=== PATIENT | male | born 1960 | race Caucasian/White ===

== ENCOUNTER → 2021-08-30 02:12 | Outpatient (CLI) | payer BC, SELFPAY ==
[2021-08-30 20:41] LABS: SARS-CoV-2 RNA PCR Positive
== END ==
PROVIDERS: PCP Internal Medicine; Visit Provider Internal Medicine
DX: U07.1 COVID-19 (principal); R05.9 Cough, unspecified
CPT/HCPCS: C9803; U0003; U0005

== ENCOUNTER 2021-10-24 09:46 | Outpatient (CLI) | payer BC, SELFPAY ==
--- NOTE | ~2021-10-24 | CT_ITS ---
EXAMINATION: CT abdomen pelvis w con EXAM DATE: 10/24/2021 10:30 INDICATION: K57.92 - Diverticulitis of intestine, part unspecified, w... TECHNIQUE: Spiral CT of the abdomen and pelvis was performed following intravenous injection of 100 m L Omnipaque 350. Axial, coronal and sagittal images of the abdomen and pelvis were reviewed. The do se-length product (DLP) for this examination was 1347.68 mGy-cm. The exposure was tailored according to patient size (auto mA exposure control), and iterative reconstruction (ASIR) was used as addition al dose reduction technique. There is no prior study for comparison. FINDINGS: The liver, spleen, adrenal glands and pancreas are unremarkable. Gallbladder is unremarkab le. No biliary obstruction. Portal and splenic veins are patent. Kidneys enhance symmetrically. T here is no hydronephrosis. Bilateral renal peripelvic cysts. The prostate is unremarkable. The blad giulia is unremarkable. There is no retroperitoneal or pelvic lymphadenopathy. There is mild scattere d arteriosclerotic disease. Small right inguinal fat-containing hernia. There is moderate scattered colonic diverticulosis. There is moderate descending colonic wall edema, most likely acute diverticulitis with microperforation. No abscess. Follow-up CT or colonoscopy indic ated to exclude less likely possibility of inflammatory cancer. The appendix is normal. The stomach and small bowel are unremarkable. There is expected amount of colonic stool. No free intraperitone al gas. The heart is normal in size. There are no pericardial or pleural effusions. The lung base s are unremarkable. There are no osteoblastic or osteolytic lesions identified. IMPRESSION: Acute descending colonic diverticulitis with microperforation. Follow-up CT or colonoscop y indicated to exclude unlikely possibility of underlying inflammatory cancer. Reviewed, dictated and finalized at location A. ARCH DIRECTOR IMPRESSION: Acute descending colonic diverticulitis with microperforation. Foll ow-up CT or colonoscopy indicated to exclude unlikely possibility of underlying inflammatory cancer.
[2021-10-24 10:17] LABS: Estimated Glomerular Filt Rate > 60
== END 2021-10-24 09:47 | disposition home or self-care (01) ==
LOC: ANHIMG 09:49
PROVIDERS: PCP Internal Medicine; Visit Provider Internal Medicine
DX: K57.20 Diverticulitis of large intestine with perforation and abscess without bleeding (principal)
CPT/HCPCS: 74177; Q9967

== ENCOUNTER 2021-10-24 10:51 | Inpatient (IN) | payer BC, SELFPAY ==
[2021-10-24] VITALS (9 sets, daily range): BP systolic 140–172; BP diastolic 65–82; PULSE 77–100; RESP 14–18; TEMP 36–36.7; O2SAT 96–100; BMI 30.8
--- NOTE | ~2021-10-24 | XR_ITS ---
EXAMINATION: XR abdomen/kub 1V DATE: 10/26/2021 15:47 INDICATION: Nausea and vomiting TECHNIQUE: A supine view of the abdomen on 2 radiographs was obtained. COMPARISON: CT dated 10/24/2021 FINDINGS: Small amount of gas and stool scattered throughout the colon. No dilated gas-filled loops of bowel to suggest obstruction. A few phleboliths in the pelvis. Mild scattered degenerative skeletal changes i n the spine and pelvis. IMPRESSION: 1. Normal bowel gas pattern. Reviewed, dictated and finalized at location A. ITY INSTRUCTOR
[2021-10-24 11:31] LABS: Basophils Percent Auto 0.2 % (0.2-1.2); Eosinophils Percent Auto 0.1 % (0-4.4); Hematocrit 49.5 % (42.0-52.0); Hemoglobin 17.5 g/dL (14.0-18.0); Immature Granulocyte Absolute 0.06 K/mm3 (0.00-0.031); Immature Granulocyte Percent A 0.3 % (0-0.5); Lymphocytes Percent Auto 5.5 % (18.3-44.2); Mean Corpuscular HGB Conc 35.4 g/dl (32-36); Mean Corpuscular Hemoglobin 31.5 pg (26-34); Mean Corpuscular Volume 89.2 fl (80-100); Mean Platelet Volume 9.8 fl (7.4-10.4); Monocytes Absolute Auto 1.3 K/mm3 (0.1-0.6); Neutrophils Absolute Auto 15.7 K/mm3 (1.3-6.7); Neutrophils Percent Auto 86.9 % (45.5-73.1); Platelet Count Result 197 k/mm3 (150-375); Red Blood Count 5.55 M/mm3 (4.6-6.20); Red Cell Distribution Width 12.3 % (11.5-14.5); White Blood Count 18.1 K/mm3 (4.5-10.0)
[2021-10-24 11:42] LABS: Alanine Aminotransferase 22 U/L (4-50); Albumin Level 4.6 g/dL (3.5-5.1); Alkaline Phosphatase 87 U/L (38-126); Anion Gap 7 mmol/L (8-16); Aspartate Amino Transferase 22 U/L (17-59); Bilirubin,Total 1.9 mg/dL (0.2-1.3); Blood Urea Nitrogen 12 mg/dL (9-20); Calcium 8.8 mg/dL (8.4-10.2); Carbon Dioxide 31 mmol/L (22-30); Chloride 101 mmol/L (98-107); Estimated CRCL calculation 112 ml/min; Estimated Glomerular Filt Rate > 60; Glucose 120 mg/dL (65-110); Lactic Acid Reflex 1.1 mmol/L (0.7-2.1); Lipase 74 U/L (23-300); Potassium 4.1 mmol/L (3.4-5.0); Sodium 139 mmol/L (137-145)
--- NOTE | 2021-10-24 11:51 | ED.ABDPAIN ---
HPI - Abdominal Pain General Chief Complaint: Abdominal Pain Stated Complaint: Sent from Danilo Ramirez Time Seen by Provider: 10/24/21 11:29 Source: RN notes reviewed History of Present Illness HPI narrative: Patient presents emergency room from home for abdominal pain. Patient states abdominal pain began yesterday pain is located left lower quadrant does not radiate described as sharp and stabbing states he does have a history of diverticulitis and feels like similar patient denies any fevers or chills nausea vomiting or any other symptoms are gone to his PCP today and been sent to CT for CT of the abdomen pelvis CT abdomen pelvis showed diverticulitis with perforation was sent to ED for further evaluation Related Data Home Medications Medication Instructions Recorded Confirmed omega-3 fatty acids 1,000 mg 1,000 mg PO DAILY 02/17/20 10/01/21 capsule Allergies Allergy/AdvReac Type Severity Reaction Status Date / Time meperidine Allergy Unknown Vomiting Verified 10/24/21 11:30 Review of Systems Review of Systems: Gen.: Denies fevers or chills ENT: Denies congestion Respiratory: Denies shortness of breath or cough CV: Denies chest pain or palpitations GI: See HPI Musculoskeletal: Denies back pain or muscle pain Neuro: Denies numbness, tingling, weakness or focal weakness Skin: Denies rash Except as documented, all other systems reviewed and negative [facility] Past Medical History Medical History Abnormal finding of blood chemistry BMI 29.0-29.9,adult BMI 30.0-30.9,adult BPPV (benign paroxysmal positional vertigo) Colon cancer screening Cough Elevated fasting glucose Encounter for routine adult health examination without abnormal findings Encounter for special screening examination for neoplasm of prostate History of kidney stones Hyperlipidemia Hypersomnolence On prison drug therapy Vertigo Family History Family History Father Diabetes mellitus Hypertension Family history of malignant neoplasm Sibling Diabetes mellitus Mother Family history of lung cancer Social History Social History Smoking status: Never smoker Alcohol intake: never Exam Narrative: APPEARANCE: No acute distress, nontoxic, resting in bed HEENT: Normocephalic, atraumatic, OMM RESPIRATORY: No respiratory distress, clear to auscultation bilaterally with no rhonchi wheezing or rales CARDIOVASCULAR: RRR s murmur ABDOMINAL: Soft nondistended tender palpation left upper quadrant and left lower quadrant on transfer upper quadrant right lower quadrant positive percussion tenderness left lower quadrant MUSCULOSKELETAl: Moves all extremities. No clubbing, cyanosis or edema. NEURO: Awake and alert. Following commands, speech normal, no focal deficits SKIN:: Warm, dry. Normal Color PSYCHIATRIC: Normal affect/mood Course Course Emergency Course: Reviewed outpatient CT scan Discussed with Dr. Jackson presentation work-up agrees to consult Discussed with SIVA Garcia for Dr Marcum agrees with admission Discussed with patient and family results of workup and diagnosis. Discussed need for admission. Patient and family understand and agree to current treatment plan Vital Signs Vital signs: Vital Signs Temperature 98.1 F 10/24/21 11:01 Pulse Rate 100 10/24/21 11:01 Respiratory Rate 18 10/24/21 11:01 Blood Pressure 172/76 H 10/24/21 11:01 Pulse Oximetry 98 10/24/21 11:01 Temperature 98.1 F 10/24/21 11:01 Pulse Rate 94 10/24/21 11:28 Respiratory Rate 14 10/24/21 11:28 Blood Pressure 148/82 H 10/24/21 11:28 Pulse Oximetry 99 10/24/21 11:28 MDM - Abdominal Pain Lab Data Result diagrams: 10/24/21 11:15 10/24/21 11:15 Labs: Lab Results 10/24/21 10/24/21 10/24/21 Range/Units 11:15 11:15 11:15 W
[2021-10-24] MEDS: ONDANSETRON INJ 4 MG/2 ML VIAL IV PUSH ×3 (12:10→19:52)
[2021-10-24] MEDS: SODIUM CHLORIDE 0.9% IV 1,000 ML 999 ML IV CONT (12:12)
[2021-10-24] MEDS: MORPHINE SULFATE (*CRX) 4 MG/ML INJ IV PUSH ×2 (12:12→16:19)
--- NOTE | 2021-10-24 13:05 | PM.CNGS ---
Assessment and Plan Assessment and plan (1) Diverticulitis of colon with perforation: Code(s): K57.20 - Diverticulitis of large intestine with perforation and abscess without bleeding Status: Acute Assessment and Plan: CT scan reviewed and discussed with the patient in detail. He has evidence of acute diverticulitis in the descending colon with microperforation. I discussed the pathophysiology of this disease process with the patient and the treatment plan at this time. We would recommend to continue the IV Zosyn, IV fluids, and bowel rest for now. Continue IV morphine and will add IV ibuprofen to help with pain control. We discussed that this will typically improve and resolve with the current treatment, but if he does not respond to IV antibiotics, then we may need to consider surgical intervention. Will continue to monitor the patient with serial abdominal exams and trend labs. Thank you for allowing us to see the patient in consultation and we will continue to follow along with you. (2) BPPV (benign paroxysmal positional vertigo): Qualifiers: Laterality: unspecified laterality Qualified Code(s): H81.10 - Benign paroxysmal vertigo, unspecified ear Code(s): H81.10 - Benign paroxysmal vertigo, unspecified ear Status: Acute (3) BMI 30.0-30.9,adult: Code(s): Z68.30 - Body mass index [BMI] 30.0-30.9, adult Status: Acute (4) Hyperlipidemia: Qualifiers: Hyperlipidemia type: mixed hyperlipidemia Qualified Code(s): E78.2 - Mixed hyperlipidemia Code(s): E78.5 - Hyperlipidemia, unspecified Status: Acute Additional Plan I have discussed the patient's case and plan of care with Dr. Jackson. History of Present Illness Consult details Consult date: 10/24/21 Reason for consult: other (Acute diverticulitis in the descending colon with micro perforation) Requesting physician: Tha Lazaro DO Narrative: This is a 61-year-old male who presented to the emergency department directly from Radiology after getting an outpatient CT scan of the abdomen and pelvis. The patient reports having an onset of mild left lower quadrant abdominal pain 2 days ago. This gradually worsened over the last 2 days. He reports that this became more severe overnight to the point that he could not get comfortable and fall asleep. He saw his PCP this morning who ordered an outpatient CT scan. This showed acute diverticulitis of the descending colon with microperforation. He was then directed to the ER for evaluation. [place] [id number]. He is afebrile in the ER and vital signs are stable. Our service has been consulted for surgical evaluation of the acute diverticulitis with microperforation. The patient is now seen in the ED. the patient reports still having left lower quadrant abdominal pain that has improved slightly since being in the ER. He denies any nausea, vomiting, diarrhea, blood in his stool, or changes in his bowel habits. His last bowel movement was yesterday and reportedly normal. He reports flatus today. He also reports bloating this morning, which has improved after passing gas. He reports 2 previous episodes of diverticulitis in 2012 and a few years after that, which were mild and treated with antibiotics as an outpatient. He has had multiple colonoscopies in the past, with his last being in 2018 with findings of diverticula in the proximal to mid sigmoid colon and internal hemorrhoids. He does have a history of an open left inguinal hernia repair with mesh in August of 2016. Review of Systems Review of Systems: All systems reviewed & are unremarkable except as noted in HPI and below Constitutional: Constitutional: Reports as per HPI, Denies body ache(s), Denies chills, Denies fatigue and Reports fever(s) (felt feverish today, has not taken temp) Eyes: Eyes: Reports no additional eye complaints ENT: Reports system reviewed and no additional complaints
--- NOTE | 2021-10-24 14:15 | PM.IMHP ---
H&P: HPI History of Present Illness Date/Time: 10/24/21 14:15 Chief Complaint: Diverticulitis. Narrative: This is a very pleasant 61-year-old male with history of diverticulitis and hyperlipidemia who presented to the emergency department for further treatment and evaluation after he was found to have diverticulitis on CT of the abdomen and pelvis taken today as an outpatient. He reports a gradual onset of left lower quadrant abdominal pain yesterday afternoon which continued to increase in intensity as the evening progressed. He describes a sharp and stabbing pain which does not radiate and is similar to those pains he has had with previous episodes of diverticulitis. The pain is worse with movement and palpation and morphine has helped take the edge off somewhat. Associated symptoms include nausea and subjective low-grade fever. He had a normal bowel movement yesterday morning and a small loose stool yesterday afternoon. His primary care provider ordered a CT of the abdomen and pelvis and in the he was found to have acute descending colon diverticulitis with micro perforation he is being admitted in this setting. He denies blood and mucus in the stool. He has not had a documented, elevated temperature. No vomiting. Review of Systems Review of Systems: Twelve systems were reviewed and are negative except for as per HPI. [facility] Past Medical History Medical History (Updated 10/24/21 @ 23:12 by Radha Nelson PA-C) Benign positional paroxysmal vertigo involving lateral canal Diverticulitis Hyperlipidemia Kidney stones Obstructive sleep apnea Surgical History Surgical History (Updated 10/24/21 @ 13:43 by Radha Nelson PA-C) History of cystoscopy (2011) With right ureteroscopy and stone extraction. History of inguinal hernia repair Open left inguinal hernia repair with mesh in August 2016. Family History Family History Father Diabetes mellitus Hypertension Family history of malignant neoplasm Sibling Diabetes mellitus Mother Family history of lung cancer Social History Social History (Updated 10/24/21 @ 23:13 by Radha Nelson PA-C) Social History: Surrogate decision maker: Barbara Zarate, spouse. Code status: Full code. Smoking status: Never smoker Alcohol intake: never Substance use: never Living arrangements: with family Additional living arrangements comments: The patient lives with his in [place]. Occupation/Education: occupation Additional occupation/education comments: Works for [employer]. Meds Home Medications and Allergies Home Medications Medication Instructions Recorded Confirmed Type omega-3 fatty acids 1,000 mg 1,000 mg PO DAILY 02/17/20 10/24/21 History capsule meclizine 25 mg tablet 25 mg PO TID PRN #30 tablet 01/31/21 10/24/21 Rx rosuvastatin [Crestor] See Rx Instructions .ROUTE .COMPLEX 10/24/21 10/24/21 History Allergies Allergy/AdvReac Type Severity Reaction Status Date / Time meperidine Allergy Unknown Vomiting Verified 10/24/21 11:30 Vital Signs Vital Signs - 24 hr 10/24/21 11:01 10/24/21 11:28 Temperature 98.1 F Pulse Rate 100 94 Respiratory Rate 18 14 Blood Pressure 172/76 H 148/82 H Pulse Oximetry 98 99 Exam Narrative: General: Mildly ill-appearing male supine in bed. Weight: 108.86 kg. BMI: 30.8. HEENT: PERRL, EOMI. Sclerae anicteric. Tacky mucous membranes. Neck: Supple. Respiratory: Lungs are clear to auscultation bilaterally. Cardiovascular: Regular rate and rhythm with S1-S2. Gastrointestinal: Abdomen is nondistended and slightly firm. He is tender to palpation left lower quadrant with some voluntary guarding but no rebound tenderness. Bowel sounds are hypoactive. Skin: Warm and dry. No rash or lesions on limited exam. Extremities: No cyanosis, clubbing, or edema. Radial and pedal pulses intact. Neurological: Alert. Cranial
--- NOTE | 2021-10-24 15:40 | ADMGEN ---
This patient, Harrison Zarate, was admitted to 3 Med Surg Room 319-01 at 1450. Patient/family oriented to hospital policies and general routines including ID bracelet, bed and alarms, visiting hours, pain management, procedures, bathroom and other care routines, personal items, smoking policy, room service/diet, and visiting hours. Information on how to activate the Rapid Response Team has been discussed. Patient/Family are encouraged to report perceived risks to care and to ask questions if they do not understand what they are told or what they should do.
[2021-10-24] MEDS: SODIUM CHLORIDE 0.9% IV 1,000 ML 125 ML IV CONT (16:18)
--- NOTE | 2021-10-24 17:41 | PM.PNGS ---
Progress Note: A&P Assessment and Plan (1) Diverticulitis of colon with perforation: Code(s): K57.20 - Diverticulitis of large intestine with perforation and abscess without bleeding Status: Acute Assessment and Plan: explained the nature of diverticulitis and the usual course. Explained also that sometimes urgent or emergent surgery is required and this can result in a colostomy. I also discussed that he would be a candidate for elective resection once his acute inflammation has subsided should he decide to do that. Currently, we will continue analgesics bowel rest IV Zosyn antibiotics for now. Will follow serial abdominal exam, labs and imaging as needed. Thank you for asking us to see this patient in consultation. Subjective Subjective Date/Time Seen: 10/24/21 17:41 Patient reports: still having pain ( Complains of left lower quadrant abdominal pain) Interval history: patient is a 61-year-old man who started noticing some left lower quadrant abdominal pain a couple of days ago. This got worse and eventually came to the emergency room this morning. He has had a couple of different episodes of diverticulitis over the years. He has had 2 different colonoscopies. The last was in 2018, 4 years ago which showed only diverticulosis and some hemorrhoids. He had an elevated white count and tenderness with guarding in the left lower quadrant on emergency room evaluation. CT scan showed recurrent episode of acute diverticulitis with micro perforation. He is admitted and started on IV Zosyn antibiotics. He has analgesics available. He is still having pain but the pain medication does help. I have reviewed the consultation by Sheri ROMAN and agree with its findings. We discussed the patient as well. He is seen now after having been admitted for his 3rd different case of acute diverticulitis. Review of Systems Review of Systems: All systems reviewed & are unremarkable except as noted in HPI and below Constitutional: Constitutional: Reports as per HPI, Denies chills, Denies fever(s), Denies headache(s) and Reports poor appetite Cardiovascular: Cardiovascular: Denies chest pain and Denies dyspnea Respiratory: Respiratory: Denies cough and Denies dyspnea Gastrointestinal: Gastrointestinal: Reports as per HPI, Reports abdominal pain, Denies heartburn, Denies diarrhea and Denies vomiting Exam Const: General: cooperative, healthy appearing, no acute distress, alert, awake, uncomfortable and well groomed; No confusion Nutritional Appearance: average body habitus Orientation/consciousness: patient oriented x3 and No confusion GI: Inspection: normal to inspection, non-distended and scaphoid GI Palp: Yes Firmness to palpation present (GI) ( left lower quadrant), Yes Tenderness to palpation present (GI) ( Especially left lower quadrant), Yes Guarding due to palpation present (GI), Yes No hepatosplenomegaly present and Yes Rebound tenderness present Percussion: No Fluid wave present and No tympanic to percussion Auscultation: Hypoactive bowel sounds present Neuro: General: patient oriented x3, no focal motor deficits and No confusion Extrem: General: no calf tenderness and no edema Psych: Affect: normal affect Insight: Good insight present (Psych) Judgement: Good judgement present (Psych) Objective Data Vital Signs Vital Signs: Vital Signs - 24 hr 10/24/21 11:01 10/24/21 11:28 10/24/21 12:00 Temperature 36.7 C Pulse Rate 100 94 Respiratory Rate 18 14 16 Blood Pressure 172/76 H 148/82 H 150/81 H Pulse Oximetry 98 99 98 10/24/21 13:00 10/24/21 14:44 10/24/21 15:00 Temperature 36.5 C Pulse Rate 91 98 Respiratory Rate 16 16 18 Blood Pressure 162/81 H 140/76 146/80 H Pulse Oximetry 100 99 100 10/24/21 16:03 Temperature Pulse Rate Respiratory Rate Blood Pressure Pulse Oximetry 96 Intake/Output Intake/Output: Intake & Output 10/21/21 10/22/21 10/23/21 10/24/21 23:59 23:59 23:
[2021-10-24] MEDS: IBUPROFEN IV 800 MG/200 ML 800 MG/200 ML BAG 400 MG IVPB (18:05)
[2021-10-24] MEDS: HYDROmorphone HCL INJ (*CRX) 1 MG/ML SYR IV PUSH (18:42)
[2021-10-24] MEDS: SODIUM CHLORIDE 0.9% IV 1,000 ML 100 ML IV CONT (23:37)
[2021-10-25 02:18] VITALS: O2SAT 95
[2021-10-25] MEDS: IBUPROFEN IV 800 MG/200 ML 800 MG/200 ML BAG 400 MG IVPB ×4 (03:55→20:32)
[2021-10-25 06:00] VITALS: BP 121/56; PULSE 70; RESP 18; TEMP 35.9; O2SAT 99
[2021-10-25 06:13] LABS: Basophils Percent Auto 0.2 % (0.2-1.2); Eosinophils Absolute Auto 0.1 K/mm3 (0-0.3); Eosinophils Percent Auto 0.4 % (0-4.4); Hematocrit 41.8 % (42.0-52.0); Hemoglobin 14.6 g/dL (14.0-18.0); Immature Granulocyte Absolute 0.05 K/mm3 (0.00-0.031); Immature Granulocyte Percent A 0.4 % (0-0.5); Lymphocytes Absolute Auto 1.33 K/mm3 (0.9-3.2); Lymphocytes Percent Auto 10.5 % (18.3-44.2); Mean Corpuscular HGB Conc 34.9 g/dl (32-36); Mean Corpuscular Hemoglobin 31.7 pg (26-34); Mean Corpuscular Volume 90.7 fl (80-100); Mean Platelet Volume 9.5 fl (7.4-10.4); Monocytes Absolute Auto 0.9 K/mm3 (0.1-0.6); Monocytes Percent Auto 7.1 % (2.6-8.5); Neutrophils Absolute Auto 10.3 K/mm3 (1.3-6.7); Neutrophils Percent Auto 81.4 % (45.5-73.1); Platelet Count Result 153 k/mm3 (150-375); Red Blood Count 4.61 M/mm3 (4.6-6.20); Red Cell Distribution Width 12.8 % (11.5-14.5); White Blood Count 12.7 K/mm3 (4.5-10.0)
[2021-10-25 06:23] LABS: Anion Gap 6 mmol/L (8-16); Blood Urea Nitrogen 13 mg/dL (9-20); Calcium 7.5 mg/dL (8.4-10.2); Carbon Dioxide 26 mmol/L (22-30); Chloride 106 mmol/L (98-107); Estimated CRCL calculation 112 ml/min; Estimated Glomerular Filt Rate > 60; Glucose 117 mg/dL (65-110); Magnesium 1.7 mg/dL (1.6-2.3); Sodium 138 mmol/L (137-145)
--- NOTE | 2021-10-25 07:49 | PM.PNGS ---
Progress Note: A&P Assessment and Plan (1) Diverticulitis of colon with perforation: Code(s): K57.20 - Diverticulitis of large intestine with perforation and abscess without bleeding Status: Acute Assessment and Plan: Improved after antibiotics IV fluids and analgesics. Ibuprofen intravenously seems to help considerably with pain. exam improved as well. Will start clear liquids. Continue to follow serial exams, labs, I&O. (2) Vertigo: Code(s): R42 - Dizziness and giddiness Status: Acute Assessment and Plan: Experienced after dose of Dilaudid last night. Gone now. Will change analgesicregimen. Subjective Subjective Date/Time Seen: 10/25/21 07:49 Patient reports: feels better, pain is less, no flatus, no bowel movement, afebrile and other ( develop severe dizziness when given Dilaudid last night.) Interval history: Pain is not gone but much better. IV ibuprofen seems to be helping a lot. Has not requested any pain medication since about 2:00 a.m.. Developed severe dizziness after taking Dilaudid last night. Review of Systems Review of Systems: All systems reviewed & are unremarkable except as noted in HPI and below Constitutional: Constitutional: Denies body ache(s), Denies chills, Denies fever(s), Denies headache(s) and Denies night sweats Cardiovascular: Cardiovascular: Denies chest pain and Denies dyspnea Respiratory: Respiratory: Denies cough and Denies dyspnea Gastrointestinal: Gastrointestinal: Reports as per HPI, Reports abdominal pain ( Left lower quadrant, improved), Denies heartburn, Denies nausea and Denies vomiting Exam Const: General: comfortable and no acute distress; No confusion Orientation/consciousness: patient oriented x3 and No confusion GI: Inspection: normal to inspection, non-distended and scaphoid GI Palp: Yes Soft to palpation, Yes Tenderness to palpation present (GI) ( left lower quadrant tenderness with guarding, less tender than last night.) and Yes Guarding due to palpation present (GI) Auscultation: Hypoactive bowel sounds present Neuro: General: patient oriented x3, no focal motor deficits and No confusion Extrem: General: no calf tenderness and no edema Psych: Affect: normal affect Insight: Good insight present (Psych) Judgement: Good judgement present (Psych) Objective Data Vital Signs Vital Signs: Vital Signs - 24 hr 10/24/21 11:01 10/24/21 11:28 10/24/21 12:00 Temperature 36.7 C Pulse Rate 100 94 Respiratory Rate 18 14 16 Blood Pressure 172/76 H 148/82 H 150/81 H Pulse Oximetry 98 99 98 10/24/21 13:00 10/24/21 14:44 10/24/21 15:00 Temperature 36.5 C Pulse Rate 91 98 Respiratory Rate 16 16 18 Blood Pressure 162/81 H 140/76 146/80 H Pulse Oximetry 100 99 100 10/24/21 16:03 10/24/21 20:00 10/24/21 22:00 Temperature 36.0 C L Pulse Rate 77 Respiratory Rate 18 18 Blood Pressure 145/65 H Pulse Oximetry 96 96 96 10/25/21 02:18 10/25/21 06:00 Temperature 35.9 C L Pulse Rate 70 Respiratory Rate 18 Blood Pressure 121/56 L Pulse Oximetry 95 99 Intake/Output Intake/Output: Intake & Output 10/22/21 10/23/21 10/24/21 10/25/21 23:59 23:59 23:59 23:59 Intake Total 2400 360 Output Total 300 450 Balance 2100 -90 Meds/Results Medications: Active Medications Generic Name Dose Route Start Last Admin Trade Name Freq PRN Reason Stop Dose Admin Hydralazine HCl 10 mg 10/24/21 13:47 Hydralazine Hcl 20 Mg/Ml Vial IV PUSH Q6H PRN SBP > 175 or DBP > 105 Hydromorphone HCl 1 mg 10/24/21 18:30 10/24/21 18:42 Hydromorphone Hcl Inj (*Crx) 1 Mg/Ml Syr IV PUSH 1 mg Q3H PRN Administration Pain Rated 7-10 Piperacillin/Tazobactam/Dextrose 3.375 gm in 50 mls @ 100 mls/hr 10/24/21 18:00 10/25/21 06:34 Zosyn 3.375 Gm/D5w 50ml Pm IVPB Infused Q6H SUSANA Infusion Sodium Chloride 1,000 mls @ 80 mls/hr 10/24/21 12:35 10/24/21 23:37 Normal Saline Iv IV CON
[2021-10-25] MEDS: ENOXAPARIN 40 MG/0.4 ML SYRINGE SUB-Q (08:48)
--- NOTE | 2021-10-25 11:45 | PM.IMPN ---
Progress Note: A&P Assessment and Plan (1) Diverticulitis of colon with perforation: Code(s): K57.20 - Diverticulitis of large intestine with perforation and abscess without bleeding Status: Acute Assessment and Plan: Outpatient CT showed diverticulitis GS has been consulted thank you for your help IV Zosyn started IV fluids for hydration Started on clear liquids No surgical intervention indicated, however, could opt for elective resection due to recurrence Pain medications Ney 7.5/325 Q4hr PRN, Ney 5/325 PO Q4Hr, Morphine 2-4 IV Q2Hr PRN, scheduled Ibuprofen for inflammation Zofran 4mg IV Q4hr Continue serial imaging (2) Elevated blood pressure reading: Code(s): R03.0 - Elevated blood-pressure reading, without diagnosis of hypertension Status: Acute Assessment and Plan: Current BP 121/56 Hold PO medications for now while she is NPO Trend BP Consider adding hydralazine IV PRN if indicated Adjust therapy as appropriate (3) Dyslipidemia: Code(s): E78.5 - Hyperlipidemia, unspecified Status: Acute Assessment and Plan: Hold PO medications for now (4) Obstructive sleep apnea: Code(s): G47.33 - Obstructive sleep apnea (adult) (pediatric) Status: Inactive Assessment and Plan: Continue home care (5) Dizziness and giddiness: Code(s): R42 - Dizziness and giddiness Status: Acute Assessment and Plan: Happened after Dilaudid Pain medications have been changed Instructed patient to change positions slowly Continue to trend symptoms Time Spent With Patient Time with patient: Greater than 35 minutes Subjective Date/time seen: 10/25/21 11:45 Interval history: Date/Time: 10/24/21 14:15 Narrative: This is a very pleasant 61-year-old male with history of diverticulitis and hyperlipidemia who presented to the emergency department for further treatment and evaluation after he was found to have diverticulitis on CT of the abdomen and pelvis taken today as an outpatient. He reports a gradual onset of left lower quadrant abdominal pain yesterday afternoon which continued to increase in intensity as the evening progressed. He describes a sharp and stabbing pain which does not radiate and is similar to those pains he has had with previous episodes of diverticulitis. The pain is worse with movement and palpation and morphine has helped take the edge off somewhat. Associated symptoms include nausea and subjective low-grade fever. He had a normal bowel movement yesterday morning and a small loose stool yesterday afternoon. His primary care provider ordered a CT of the abdomen and pelvis and in the he was found to have acute descending colon diverticulitis with micro perforation he is being admitted in this setting. He denies blood and mucus in the stool. He has not had a documented, elevated temperature. No vomiting. Date/Time 10/25/21 11:45 Patient stated that his pain is lot better today than it was yesterday. He stated yesterday that he was unable to really even palpate his abdomen however today he can palpate it his pain is around a 3/10. He did state that he was taking morphine however was not effective enough so they did switch him to lot it. He then stated that he did not really like the Dilaudid because it caused him to be very dizzy and nauseated. He also stated that he is able to take a deep breath and he is less short of breath today. Patient stated that he has been constipated however is not been eating regularly due to the issues that he has had. Patient denies any chest pain, shortness of breath, nausea, vomiting, diarrhea, sweats, fevers, chills. Patient did state that he was tolerating ice chips. Review of Systems Review of Systems: All systems reviewed & are unremarkable except as noted in HPI and below Exam Const: General: cooperative, healthy appearing, no acute distress, well
[2021-10-25] MEDS: MAGNESIUM SULF 2 GM/WATER 50ML 2 GM/50 ML BAG IVPB (12:08)
[2021-10-25] MEDS: SODIUM CHLORIDE 0.9% IV 1,000 ML 100 ML IV CONT (12:08)
[2021-10-25 14:00] VITALS: BP 130/75; PULSE 77; RESP 18; TEMP 36.6; O2SAT 97
[2021-10-25 20:42] VITALS: BP 125/63; PULSE 66; RESP 18; TEMP 36.4; O2SAT 97
[2021-10-25 22:37] VITALS: O2SAT 97
[2021-10-26] MEDS: IBUPROFEN IV 800 MG/200 ML 800 MG/200 ML BAG 400 MG IVPB ×2 (02:53→08:50)
[2021-10-26] MEDS: SODIUM CHLORIDE 0.9% IV 1,000 ML 100 ML IV CONT (03:00)
[2021-10-26 05:31] VITALS: BP 132/71; PULSE 58; RESP 18; TEMP 36.4; O2SAT 98
[2021-10-26] MEDS: HYDROcodone/acetaminophen (*CRX) 7.5-325 MG TABLET 1 TAB PO (05:47)
[2021-10-26 06:14] LABS: Hematocrit 41.3 % (42.0-52.0); Hemoglobin 13.9 g/dL (14.0-18.0); Mean Corpuscular HGB Conc 33.7 g/dl (32-36); Mean Corpuscular Hemoglobin 31.4 pg (26-34); Mean Corpuscular Volume 93.2 fl (80-100); Platelet Count Result 156 k/mm3 (150-375); Red Blood Count 4.43 M/mm3 (4.6-6.20); Red Cell Distribution Width 12.6 % (11.5-14.5); White Blood Count 6.4 K/mm3 (4.5-10.0)
[2021-10-26 06:31] LABS: Anion Gap 4 mmol/L (8-16); Blood Urea Nitrogen 11 mg/dL (9-20); Calcium 7.3 mg/dL (8.4-10.2); Carbon Dioxide 27 mmol/L (22-30); Chloride 107 mmol/L (98-107); Estimated CRCL calculation 127 ml/min; Estimated Glomerular Filt Rate > 60; Glucose 100 mg/dL (65-110); Magnesium 1.9 mg/dL (1.6-2.3); Potassium 4.1 mmol/L (3.4-5.0); Sodium 138 mmol/L (137-145)
[2021-10-26] MEDS: ENOXAPARIN 40 MG/0.4 ML SYRINGE SUB-Q (08:51)
--- NOTE | 2021-10-26 12:26 | PM.PNGS ---
Progress Note: A&P Assessment and Plan (1) Diverticulitis of colon with perforation: Code(s): K57.20 - Diverticulitis of large intestine with perforation and abscess without bleeding Status: Acute Assessment and Plan: Continues to improve. Will start low fiber diet today. Increase ambulation. If tolerates okay and continues to improve, can probably go home tomorrow on oral antibiotics. Subjective Subjective Date/Time Seen: 10/26/21 12:26 Patient reports: pain is less (Pain nearly gone. Feels better), bowel movement and afebrile Review of Systems Review of Systems: All systems reviewed & are unremarkable except as noted in HPI and below Constitutional: Constitutional: Denies body ache(s), Denies chills, Denies fever(s), Denies headache(s) and Denies night sweats Cardiovascular: Cardiovascular: Denies chest pain and Denies dyspnea Respiratory: Respiratory: Denies cough and Denies dyspnea Gastrointestinal: Gastrointestinal: Reports as per HPI, Reports abdominal pain (Improved, still left lower quadrant), Denies heartburn, Reports loose stools and Denies nausea Exam Const: General: comfortable and no acute distress; No confusion Orientation/consciousness: patient oriented x3 and No confusion GI: Inspection: normal to inspection, non-distended and scaphoid GI Palp: Yes Soft to palpation, Yes Tenderness to palpation present (GI) (Left lower quadrant and left mid abdomen), No Guarding due to palpation present (GI), No Palpable mass present, No Ascites present and No Rebound tenderness present Auscultation: normal bowel sounds Neuro: General: patient oriented x3, no focal motor deficits and No confusion Extrem: General: no calf tenderness and no edema Psych: Affect: normal affect Insight: Good insight present (Psych) Judgement: Good judgement present (Psych) Objective Data Vital Signs Vital Signs: Vital Signs - 24 hr 10/25/21 14:00 10/25/21 20:42 10/25/21 22:37 Temperature 36.6 C 36.4 C L Pulse Rate 77 66 Respiratory Rate 18 18 Blood Pressure 130/75 125/63 Pulse Oximetry 97 97 97 10/26/21 05:31 Temperature 36.4 C L Pulse Rate 58 L Respiratory Rate 18 Blood Pressure 132/71 Pulse Oximetry 98 Intake/Output Intake/Output: Intake & Output 03/08/22 10/24/21 10/25/21 10/26/21 23:59 23:59 23:59 23:59 Intake Total 2400 3260 600 Output Total 300 1050 800 Balance 2100 2210 -200 Meds/Results Medications: Active Medications Generic Name Dose Route Start Last Admin Trade Name Freq PRN Reason Stop Dose Admin Hydrocodone Bitart/Acetaminophen 1 tab 10/25/21 07:47 Hydrocodone/Acetaminophen (*Crx) 5-325 Mg Tablet PO Q4H PRN Pain Rated 4-6 Hydrocodone Bitart/Acetaminophen 1 tab 10/25/21 07:47 10/26/21 05:47 Hydrocodone/Acetaminophen (*Crx) 7.5-325 Mg Tablet PO 1 tab Q4H PRN Administration Pain Rated 7-10 Enoxaparin Sodium 40 mg 10/25/21 09:00 10/26/21 08:51 Enoxaparin 40 Mg/0.4 Ml Syringe SUB-Q 40 mg DAILY SUSANA Administration Hydralazine HCl 10 mg 10/24/21 13:47 Hydralazine Hcl 20 Mg/Ml Vial IV PUSH Q6H PRN SBP > 175 or DBP > 105 Piperacillin/Tazobactam/Dextrose 3.375 gm in 50 mls @ 100 mls/hr 10/24/21 18:00 10/26/21 12:00 Zosyn 3.375 Gm/D5w 50ml Pm IVPB Infused Q6H SUSANA Infusion Ibuprofen 600 mg 10/26/21 12:23 Ibuprofen 600 Mg Tablet PO Q6H PRN Pain Rated 1-3 Morphine Sulfate 2 mg 10/25/21 07:47 Morphine Sulfate (*Crx) 2 Mg/Ml Inj IV PUSH Q2H PRN Pain Rated 4-6 Morphine Sulfate 4 mg 10/25/21 07:47 Morphine Sulfate (*Crx) 4 Mg/Ml Inj IV PUSH Q2H PRN Pain Rated 7-10 Ondansetron HCl 4 mg 10/24/21 12:33 10/24/21 19:52 Ondansetron Inj 4 Mg/2 Ml Vial IV PUSH 4 mg Q4H PRN Administration Nausea Labs Labs: Laboratory Results - last 24 hr 10/26/21 10/26/21 05:54 05:54 WBC 6.4 RBC 4.43 L Hgb 13.9 L Hct 41.3 L MCV 93.2 MCH
[2021-10-26] MEDS: ONDANSETRON INJ 4 MG/2 ML VIAL IV PUSH (13:59)
[2021-10-26 14:00] VITALS: BP 152/75; PULSE 60; RESP 18; TEMP 35.6; O2SAT 100
--- NOTE | 2021-10-26 14:15 | P.PNIM_ITS ---
Progress Note: A&P Assessment and Plan (1) Diverticulitis of colon with perforation: Code(s): K57.20 - Diverticulitis of large intestine with perforation and abscess without bleeding Status: Acute Assessment and Plan: * Outpatient CT showed diverticulitis * GS has been consulted thank you for your help * IV Zosyn started * IV fluids for hydration * Advance diet as tolerated, Tolerating full liquids and low fiber diet initated * No surgical intervention indicated, however, could opt for elective resection due to recurrence * Pain medications Bl[place] 7.5/325 Q4hr PRN, [place] 5/325 PO Q4Hr, Morphine 2-4 IV Q2Hr PRN, scheduled Ibuprofen for inflammation * Zofran 4mg IV Q4hr * Repeat xray pending (2) Elevated blood pressure reading: Code(s): R03.0 - Elevated blood-pressure reading, without diagnosis of hypertension Status: Acute Assessment and Plan: * Current BP 132/71 * Hold PO medications for now while he is NPO * Trend BP * Consider adding hydralazine IV PRN if indicated * Adjust therapy as appropriate (3) Dyslipidemia: Code(s): E78.5 - Hyperlipidemia, unspecified Status: Acute Assessment and Plan: * Hold PO medications for now (4) Obstructive sleep apnea: Code(s): G47.33 - Obstructive sleep apnea (adult) (pediatric) Status: Inactive Assessment and Plan: * Continue home care (5) Dizziness and giddiness: Code(s): R42 - Dizziness and giddiness Status: Acute Assessment and Plan: * Repeat issue again today after eating * Did restart his home meclizine * Happened after Dilaudid * Pain medications have been changed * Instructed patient to change positions slowly * Continue to trend symptoms (6) Vertigo: Code(s): R42 - Dizziness and giddiness Status: Acute Assessment and Plan: * Dizziness, when moving head from side to side * Accompanied with nausea and vomiting * Meclizine restarted from home * Will continue to trend symptoms Time Spent With Patient Time with patient: Greater than 35 minutes Subjective Date/time seen: 10/26/21 14:15 Interval history: Date/Time: 10/24/21 14:15 Narrative: This is a very pleasant 61-year-old male with history of diverticulitis and hyperlipidemia who presented to the emergency department for further treatment and evaluation after he was found to have diverticulitis on CT of the abdomen and pelvis taken today as an outpatient. He reports a gradual onset of left lower quadrant abdominal pain yesterday afternoon which continued to increase in intensity as the evening progressed. He describes a sharp and stabbing pain which does not radiate and is similar to those pains he has had with previous episodes of diverticulitis. The pain is worse with movement and palpation and morphine has helped take the edge off somewhat. Associated symptoms include nausea and subjective low-grade fever. He had a normal bowel movement yesterday morning and a small loose stool yesterday afternoon. His primary care provider ordered a CT of the abdomen and pelvis and in the he was found to have acute descending colon diverticulitis with micro perforation he is being admitted in this setting. He denies blood and mucus in the stool. He has not had a documented, elevated temperature. No vomiting. Date/Time 10/25/21 11:45 Patient stated that his pain is lot better today than it was yesterday. He stated yesterday that he w
--- NOTE | 2021-10-26 14:15 | PM.IMPN ---
Progress Note: A&P Assessment and Plan (1) Diverticulitis of colon with perforation: Code(s): K57.20 - Diverticulitis of large intestine with perforation and abscess without bleeding Status: Acute Assessment and Plan: Outpatient CT showed diverticulitis GS has been consulted thank you for your help IV Zosyn started IV fluids for hydration Advance diet as tolerated, Tolerating full liquids and low fiber diet initated No surgical intervention indicated, however, could opt for elective resection due to recurrence Pain medications [place] 7.5/325 Q4hr PRN, [place] 5/325 PO Q4Hr, Morphine 2-4 IV Q2Hr PRN, scheduled Ibuprofen for inflammation Zofran 4mg IV Q4hr Repeat xray pending (2) Elevated blood pressure reading: Code(s): R03.0 - Elevated blood-pressure reading, without diagnosis of hypertension Status: Acute Assessment and Plan: Current BP 132/71 Hold PO medications for now while he is NPO Trend BP Consider adding hydralazine IV PRN if indicated Adjust therapy as appropriate (3) Dyslipidemia: Code(s): E78.5 - Hyperlipidemia, unspecified Status: Acute Assessment and Plan: Hold PO medications for now (4) Obstructive sleep apnea: Code(s): G47.33 - Obstructive sleep apnea (adult) (pediatric) Status: Inactive Assessment and Plan: Continue home care (5) Dizziness and giddiness: Code(s): R42 - Dizziness and giddiness Status: Acute Assessment and Plan: Repeat issue again today after eating Did restart his home meclizine Happened after Dilaudid Pain medications have been changed Instructed patient to change positions slowly Continue to trend symptoms (6) Vertigo: Code(s): R42 - Dizziness and giddiness Status: Acute Assessment and Plan: Dizziness, when moving head from side to side Accompanied with nausea and vomiting Meclizine restarted from home Will continue to trend symptoms Time Spent With Patient Time with patient: Greater than 35 minutes Subjective Date/time seen: 10/26/21 14:15 Interval history: Date/Time: 10/24/21 14:15 Narrative: This is a very pleasant 61-year-old male with history of diverticulitis and hyperlipidemia who presented to the emergency department for further treatment and evaluation after he was found to have diverticulitis on CT of the abdomen and pelvis taken today as an outpatient. He reports a gradual onset of left lower quadrant abdominal pain yesterday afternoon which continued to increase in intensity as the evening progressed. He describes a sharp and stabbing pain which does not radiate and is similar to those pains he has had with previous episodes of diverticulitis. The pain is worse with movement and palpation and morphine has helped take the edge off somewhat. Associated symptoms include nausea and subjective low-grade fever. He had a normal bowel movement yesterday morning and a small loose stool yesterday afternoon. His primary care provider ordered a CT of the abdomen and pelvis and in the he was found to have acute descending colon diverticulitis with micro perforation he is being admitted in this setting. He denies blood and mucus in the stool. He has not had a documented, elevated temperature. No vomiting. Date/Time 10/25/21 11:45 Patient stated that his pain is lot better today than it was yesterday. He stated yesterday that he was unable to really even palpate his abdomen however today he can palpate it his pain is around a 3/10. He did state that he was taking morphine however was not effective enough so they did switch him to lot it. He then stated that he did not really like the Dilaudid because it caused him to be very dizzy and nauseated. He also stated that he is able to take a deep breath and he is less short of breath today. Patient stated that he has been constipated however is not been eat
[2021-10-26] MEDS: MECLIZINE HCL 25 MG TABLET PO (15:20)
[2021-10-26 21:15] VITALS: BP 145/72; PULSE 73; RESP 15; TEMP 36.5; O2SAT 100
[2021-10-27 05:35] VITALS: BP 135/76; PULSE 55; RESP 16; TEMP 36.1; O2SAT 97
[2021-10-27 07:09] LABS: Anion Gap 4 mmol/L (8-16); Blood Urea Nitrogen 9 mg/dL (9-20); Calcium 7.9 mg/dL (8.4-10.2); Carbon Dioxide 29 mmol/L (22-30); Chloride 106 mmol/L (98-107); Estimated CRCL calculation 113 ml/min; Estimated Glomerular Filt Rate > 60; Glucose 104 mg/dL (65-110); Potassium 3.9 mmol/L (3.4-5.0); Sodium 139 mmol/L (137-145)
[2021-10-27 07:11] LABS: Hematocrit 44.5 % (42.0-52.0); Hemoglobin 15.1 g/dL (14.0-18.0); Mean Corpuscular HGB Conc 33.9 g/dl (32-36); Mean Corpuscular Hemoglobin 31.3 pg (26-34); Mean Corpuscular Volume 92.1 fl (80-100); Mean Platelet Volume 10.5 fl (7.4-10.4); Platelet Count Result 183 k/mm3 (150-375); Red Blood Count 4.83 M/mm3 (4.6-6.20); Red Cell Distribution Width 12.6 % (11.5-14.5)
--- NOTE | 2021-10-27 08:30 | PM.DS ---
DS: Admitting Diagnosis Discharge Date 10/27/21829 Admitting Diagnosis Diverticulitis with perforation DS: Discharge Diagnosis Discharge Diagnosis (1) Diverticulitis of colon with perforation: Code(s): K57.20 - Diverticulitis of large intestine with perforation and abscess without bleeding Status: Acute Assessment and Plan: Outpatient CT showed diverticulitis GS has been consulted thank you for your help IV Zosyn started, convert to PO IV fluids for hydration Advance diet as tolerated, Tolerating full liquids and low fiber diet initated No surgical intervention indicated, however, could opt for elective resection due to recurrence Pain medications Beltrami 7.5/325 Q4hr PRN, [place] 5/325 PO Q4Hr, Morphine 2-4 IV Q2Hr PRN, scheduled Ibuprofen for inflammation Zofran 4mg IV Q4hr Repeat xray of the abdomen normal bowel gas pattern Able to eat his full tray with no nausea/vomiting (2) Elevated blood pressure reading: Code(s): R03.0 - Elevated blood-pressure reading, without diagnosis of hypertension Status: Acute Assessment and Plan: Current BP 135/76 Hold PO medications for now while he is NPO Trend BP Consider adding hydralazine IV PRN if indicated Adjust therapy as appropriate (3) Dyslipidemia: Code(s): E78.5 - Hyperlipidemia, unspecified Status: Acute Assessment and Plan: Hold PO medications for now (4) Obstructive sleep apnea: Code(s): G47.33 - Obstructive sleep apnea (adult) (pediatric) Status: Inactive Assessment and Plan: Continue home care (5) Dizziness and giddiness: Code(s): R42 - Dizziness and giddiness Status: Acute Assessment and Plan: Repeat issue again today after eating Did restart his home meclizine Happened after Dilaudid Pain medications have been changed Instructed patient to change positions slowly Continue to trend symptoms Think this is related to vertigo (6) Vertigo: Code(s): R42 - Dizziness and giddiness Status: Chronic Assessment and Plan: Resolved Dizziness, when moving head from side to side Accompanied with nausea and vomiting Meclizine restarted from home Will continue to trend symptoms DS: Summary Hospital Course Hospital Course: Patient is 61-year-old male with a past medical history of hyperlipidemia, diverticulitis, kidney stones, EMMY, BPPV who presented the ED with complaints of abdominal pain in which she had a CT done in out side facility per his primary care provider. Patient stated that he was directed to come to the ED after his CT showed diverticulitis. Patient stated he has been having abdominal pain is in the left lower quadrant that has progressively worsened. Patient was started on IV antibiotics and pain medications. Patient was having some nausea and vomiting with a low-grade fever however that has resolved. Patient was left NPO for bowel rest and was given IV fluids. Diet has been advanced to low fiber. Patient has been able to tolerated diet without any nausea, vomiting. Patient is have experiencing some constipation however he has not had a bowel movement for a while prior to coming in. Lab results have been stable and remained stable at this time. Patient did have a couple episodes of dizziness. Patient was given meclizine and dizziness has resolved. Patient is ready to go home and is stable for discharge. Status at Discharge Functional status at discharge: independent ambulation Overall status at discharge: patient is progressing back to baseline Time Spent with Patient Time attestation: Total time spent providing and/or coordinating discharge services:48 minutes Time spent: Greater than 30 minutes Specific discharge activities: Diagnostic testing, chart review, developing a treatment plan, education, care coordination documentation, physical exam, result review Ex
--- NOTE | 2021-10-27 08:30 | P.DS_ITS ---
DS: Admitting Diagnosis Discharge Date 10/27/21829 Admitting Diagnosis Diverticulitis with perforation DS: Discharge Diagnosis Discharge Diagnosis (1) Diverticulitis of colon with perforation: Code(s): K57.20 - Diverticulitis of large intestine with perforation and abscess without bleeding Status: Acute Assessment and Plan: * Outpatient CT showed diverticulitis * GS has been consulted thank you for your help * IV Zosyn started, convert to PO * IV fluids for hydration * Advance diet as tolerated, Tolerating full liquids and low fiber diet initated * No surgical intervention indicated, however, could opt for elective resection due to recurrence * Pain medications [place] 7.5/325 Q4hr PRN, [place] 5/325 PO Q4Hr, Morphine 2-4 IV Q2Hr PRN, scheduled Ibuprofen for inflammation * Zofran 4mg IV Q4hr * Repeat xray of the abdomen normal bowel gas pattern Able to eat his full tray with no nausea/vomiting (2) Elevated blood pressure reading: Code(s): R03.0 - Elevated blood-pressure reading, without diagnosis of hypertension Status: Acute Assessment and Plan: * Current BP 135/76 * Hold PO medications for now while he is NPO * Trend BP * Consider adding hydralazine IV PRN if indicated * Adjust therapy as appropriate (3) Dyslipidemia: Code(s): E78.5 - Hyperlipidemia, unspecified Status: Acute Assessment and Plan: * Hold PO medications for now (4) Obstructive sleep apnea: Code(s): G47.33 - Obstructive sleep apnea (adult) (pediatric) Status: Inactive Assessment and Plan: * Continue home care (5) Dizziness and giddiness: Code(s): R42 - Dizziness and giddiness Status: Acute Assessment and Plan: * Repeat issue again today after eating * Did restart his home meclizine * Happened after Dilaudid * Pain medications have been changed * Instructed patient to change positions slowly * Continue to trend symptoms * Think this is related to vertigo (6) Vertigo: Code(s): R42 - Dizziness and giddiness Status: Chronic Assessment and Plan: * Resolved * Dizziness, when moving head from side to side * Accompanied with nausea and vomiting * Meclizine restarted from home * Will continue to trend symptoms DS: Summary Hospital Course Hospital Course: Patient is 61-year-old male with a past medical history of hyperlipidemia, diverticulitis, kidney stones, EMMY, BPPV who presented the ED with complaints of abdominal pain in which she had a CT done in out side facility per his primary care provider. Patient stated that he was directed to come to the ED after his CT showed diverticulitis. Patient stated he has been having abdominal pain is in the left lower quadrant that has progressively worsened. Patient was started on IV antibiotics and pain medications. Patient was having some nausea and vomiting with a low-grade fever however that has resolved. Patient was left NPO for bowel rest and was given IV fluids. Diet has been advanced to low fiber. Patient has been able to tolerated diet without any nausea, vomiting. Patient is have experiencing some constipation however he has not had a bowel movement for a while prior to coming in. Lab results have been stable and remained stable at this time. Patient did have a couple episodes of dizziness. Patient was given meclizine and dizziness has resolved. Patient is ready to go home and is stable for discha
--- NOTE | 2021-10-27 10:51 | PM.PNGS ---
Progress Note: A&P Assessment and Plan (1) Diverticulitis of colon with perforation: Code(s): K57.20 - Diverticulitis of large intestine with perforation and abscess without bleeding Status: Acute Assessment and Plan: Left lower quadrant pain gone. Patient feels much better. Okay to discharge from my perspective on low-fiber diet and another 5 days of Augmentin. I will see him in the office in 2 weeks. We will discuss surgical resection and possibly repeat colonoscopy at that time. (2) Vertigo: Code(s): R42 - Dizziness and giddiness Status: Chronic Assessment and Plan: Bothers him from time to time but no problems with this at all today. Subjective Subjective Date/Time Seen: 10/27/21 10:51 Patient reports: feels better (Feels good, wants to go home today.), tolerating a regular diet and vomiting (Had some vomiting yesterday associated with vertigo but no abdominal pain, none since.) Review of Systems Review of Systems: All systems reviewed & are unremarkable except as noted in HPI and below Constitutional: Constitutional: Denies chills, Denies fever(s) and Reports increased appetite Gastrointestinal: Gastrointestinal: Reports as per HPI, Denies abdominal pain, Denies heartburn, Denies nausea and Denies vomiting Exam Const: General: comfortable and no acute distress; No confusion Orientation/consciousness: patient oriented x3 and No confusion GI: Inspection: normal to inspection, non-distended and scaphoid GI Palp: Yes Soft to palpation, Yes Tenderness to palpation present (GI) (Still a little tender in the left lower quadrant but much better.), No Guarding due to palpation present (GI) and No Rebound tenderness present Auscultation: normal bowel sounds Neuro: General: patient oriented x3, no focal motor deficits and No confusion Extrem: General: no calf tenderness and no edema Psych: Affect: normal affect Insight: Good insight present (Psych) Judgement: Good judgement present (Psych) Objective Data Vital Signs Vital Signs: Vital Signs - 24 hr 10/26/21 14:00 10/26/21 21:15 10/27/21 05:35 Temperature 35.6 C L 36.5 C 36.1 C L Pulse Rate 60 73 55 L Respiratory Rate 18 15 16 Blood Pressure 152/75 H 145/72 H 135/76 Pulse Oximetry 100 100 97 Intake/Output Intake/Output: Intake & Output 10/24/21 10/25/21 10/26/21 10/27/21 23:59 23:59 23:59 23:59 Intake Total 2400 3260 1130 960 Output Total 300 1050 800 Balance 2100 2210 330 960 Meds/Results Medications: Active Medications Generic Name Dose Route Start Last Admin Trade Name Freq PRN Reason Stop Dose Admin Hydrocodone Bitart/Acetaminophen 1 tab 10/25/21 07:47 Hydrocodone/Acetaminophen (*Crx) 5-325 Mg Tablet PO Q4H PRN Pain Rated 4-6 Hydrocodone Bitart/Acetaminophen 1 tab 10/25/21 07:47 10/26/21 05:47 Hydrocodone/Acetaminophen (*Crx) 7.5-325 Mg Tablet PO 1 tab Q4H PRN Administration Pain Rated 7-10 Enoxaparin Sodium 40 mg 10/25/21 09:00 10/27/21 08:36 Enoxaparin 40 Mg/0.4 Ml Syringe SUB-Q Not Given DAILY SUSANA Hydralazine HCl 10 mg 10/24/21 13:47 Hydralazine Hcl 20 Mg/Ml Vial IV PUSH Q6H PRN SBP > 175 or DBP > 105 Piperacillin/Tazobactam/Dextrose 3.375 gm in 50 mls @ 100 mls/hr 10/24/21 18:00 10/27/21 05:07 Zosyn 3.375 Gm/D5w 50ml Pm IVPB 100 mls/hr Q6H SUSANA Administration Ibuprofen 600 mg 10/26/21 12:23 Ibuprofen 600 Mg Tablet PO Q6H PRN Pain Rated 1-3 Meclizine HCl 25 mg 10/26/21 15:12 10/26/21 15:20 Meclizine Hcl 25 Mg Tablet PO 25 mg TID PRN Administration dizziness Morphine Sulfate 2 mg 10/25/21 07:47 Morphine Sulfate (*Crx) 2 Mg/Ml Inj IV PUSH Q2H PRN Pain Rated 4-6 Morphine Sulfate 4 mg 10/25/21 07:47 Morphine Sulfate (*Crx) 4 Mg/Ml Inj IV PUSH Q2H PRN Pain Rated 7-10 Ondansetron HCl 4 mg 10/24/21 12:33 10/26/21 13:59 Ondansetron Inj 4 Mg/2 Ml Vial IV PUSH
== END 2021-10-27 12:15 | disposition home or self-care (01) | DRG 392 ==
LOC: ANHED 12:46 → ANH3MEDSUR 13:58
PROVIDERS: Surgery; Admitting Provider Internal Medicine; Emergency Provider Emergency Medicine; PCP Internal Medicine; Visit Provider Nurse Practitioner
DX: K57.20 Diverticulitis of large intestine with perforation and abscess without bleeding (principal); E78.5 Hyperlipidemia, unspecified; G47.33 Obstructive sleep apnea (adult) (pediatric); R03.0 Elevated blood-pressure reading, without diagnosis of hypertension; R42 Dizziness and giddiness
CPT/HCPCS: 36415; 74018; 74177; 80048; 80053; 83605; 83690; 83735; 85025; 85027; 87040; 87077; 87186; 96361; 96365; 96366; 96367; 96372; 96375; 96376; 99285; A9270; G0378; J1170; J1650; J1741; J2270; J2405; J2543; J3475; J7030; Q9967

== ENCOUNTER 2022-10-31 08:12 | Inpatient (IN) | payer BC, SELFPAY ==
[2022-10-31] VITALS (7 sets, daily range): BP systolic 113–160; BP diastolic 64–103; PULSE 69–112; RESP 14–18; TEMP 36.3–37.3; O2SAT 95–100; BMI 31.5
--- NOTE | ~2022-10-31 | CT_ITS ---
CT of the Abdomen and Pelvis: Indication: Abdominal pain, history of microperforation Technique: 2.5 mm axial scans were obtained through the abdomen and pelvis following intravenous adm inistration of 100 cc of Omnipaque 350. Dose reduction technique was used on this scan by utilizing a utomated exposure control and iterative reconstruction technique. The dose-length product (DLP) was 9 83.34 mGy-cm. COMPARISON: 10/24/2021 Findings: Scans through the lung bases are unremarkable. The liver, spleen, pancreas, gallbladder, and adrenal glands are within normal limits. Probable bilat eral parapelvic renal cysts. No evidence of aortic aneurysm. No lymphadenopathy. There is wall thickening and inflammatory change at the splenic flexure the colon consistent with acu te diverticulitis. There are several small bubbles of free air in this region, consistent with microp erforation. No abscess evident. Images through the pelvis were performed. Urinary bladder unremarkable. Prostate gland and seminal ve sicles are unremarkable. No ascites. Impression: Acute diverticulitis at the splenic flexure the colon with several small bubbles of local free air, c onsistent with microperforation. No abscess. Reviewed, dictated and finalized at location . Impression: Acute diverticulitis at the splenic flexure the colon with several small bubble s of local free air, consistent with microperforation. No abscess.
[2022-10-31 08:35] LABS: Basophils Percent Auto 0.2 % (0.2-1.2); Hematocrit 46.8 % (42.0-52.0); Hemoglobin 16.1 g/dL (14.0-18.0); Immature Granulocyte Absolute 0.12 K/mm3 (0.00-0.031); Immature Granulocyte Percent A 0.5 % (0-0.5); Lymphocytes Absolute Auto 1.16 K/mm3 (0.9-3.2); Lymphocytes Percent Auto 5.2 % (18.3-44.2); Mean Corpuscular HGB Conc 34.4 g/dl (32-36); Mean Corpuscular Hemoglobin 31.5 pg (26-34); Mean Corpuscular Volume 91.6 fl (80-100); Mean Platelet Volume 9.8 fl (7.4-10.4); Monocytes Absolute Auto 1.4 K/mm3 (0.1-0.6); Monocytes Percent Auto 6.1 % (2.6-8.5); Neutrophils Absolute Auto 19.7 K/mm3 (1.3-6.7); Platelet Count Result 192 k/mm3 (150-375); Red Blood Count 5.11 M/mm3 (4.6-6.20); Red Cell Distribution Width 12.5 % (11.5-14.5); White Blood Count 22.4 K/mm3 (4.5-10.0)
[2022-10-31 08:42] LABS: Lactic Acid Reflex 1.1 mmol/L (0.7-2.0)
[2022-10-31 08:45] LABS: Alanine Aminotransferase 21 U/L (6-50); Albumin Level 4.6 g/dL (3.5-5.1); Alkaline Phosphatase 76 U/L (38-126); Anion Gap 7 mmol/L (8-16); Aspartate Amino Transferase 18 U/L (17-59); Bilirubin,Total 2.5 mg/dL (0.2-1.3); Blood Urea Nitrogen 11 mg/dL (9-20); Calcium 8.6 mg/dL (8.4-10.2); Carbon Dioxide 25 mmol/L (22-30); Chloride 101 mmol/L (98-107); Estimated CRCL calculation 125 ml/min; Estimated Glomerular Filt Rate > 60; Glucose 142 mg/dL (65-110); Lipase 66 U/L (23-300); Potassium 3.8 mmol/L (3.4-5.0); Sodium 133 mmol/L (137-145)
--- NOTE | 2022-10-31 08:57 | ED.ABDPAIN ---
HPI - Abdominal Pain General Chief Complaint: Abdominal Pain Stated Complaint: abdominal pain Time Seen by Provider: 10/31/22 08:23 Source: patient and family Mode of arrival: ambulatory Limitations: no limitations History of Present Illness HPI narrative: Patient is a 62-year-old male with a history of diverticulitis presenting to the emergency department for evaluation of left lower quadrant abdominal pain. Pain has been worsening over the past 36 hours, located in the left lower quadrant described as aching in nature. Patient without radiation to the upper abdomen, flank. No associated dysuria or hematuria. He does report associated nausea and decreased oral intake secondary to this without vomiting. He denies fever, chills. Patient reports history of diverticulitis in the past, states that this feels similar. He was communicating with his primary care physician and advised to come to the emergency department for evaluation. Patient does report history of microperforation secondary to a bout of diverticulitis which required an inpatient hospitalization in which he was seen by Dr. Jackson. Patient did not require surgery for this. He denies establishing with a GI physician. Related Data Home Medications Medication Instructions Recorded Confirmed omega-3 fatty acids 1,000 mg 1,000 mg PO DAILY 02/17/20 10/29/22 capsule (Fish Oil Concentrate) Allergies Allergy/AdvReac Type Severity Reaction Status Date / Time meperidine Allergy Unknown Vomiting Verified 10/31/22 08:20 Review of Systems Review of Systems: CONSTITUTIONAL: Denies fever, chills, or sweats. EYES: Denies visual changes, redness, or discharge. ENT: Denies rhinorrhea, congestion, sore throat, or otalgia. CARDIOVASCULAR: Denies chest pain, palpitations, or edema. RESPIRATORY: Denies cough or dyspnea. GASTROINTESTINAL: Patient reports left lower quadrant abdominal pain, nausea without vomiting, denies diarrhea GENITOURINARY: Denies dysuria or hematuria. SKIN: Denies rash or itching. MUSCULOSKELETAL: Denies back pain, joint pain, or myalgia. NEUROLOGIC: Denies headache, numbness, or weakness. [facility] Past Medical History Medical History Achilles tendinitis of right lower extremity Benign positional paroxysmal vertigo involving lateral canal BRBPR (bright red blood per rectum) Diverticulitis Diverticulosis of intestine with bleeding Diverticulosis of intestine without bleeding Fall FHx: type 2 diabetes mellitus Hemangioma of other sites Hyperlipidemia Kidney stones Mouth sore Obstructive sleep apnea EMMY (obstructive sleep apnea) Prostate cancer screening Unilateral inguinal hernia without obstruction or gangrene Surgical History Surgical History History of cystoscopy (2011) With right ureteroscopy and stone extraction. History of inguinal hernia repair Open left inguinal hernia repair with mesh in August 2016. Family History Family History Father Diabetes mellitus Hypertension Family history of malignant neoplasm Sibling Diabetes mellitus Mother Family history of lung cancer Social History Social History Social History: Surrogate decision maker: Barbara Zarate, spouse. Code status: Full code. Smoking status: Never smoker Alcohol intake: never Substance use: never Lack of Transportation: No Lack of Food: Never True Current Housing: I Have Housing Concerned About Future Housing: No Difficulty Paying Gas/Electric Bills: No Difficulty Paying for Meds: No Currently Unemployed: No Education: High School Diploma/GED Difficulty w/ Childcare or Family Care: No Living arrangements: with family Additional living arrangements comments: The patient lives with his in [place]. Occupation/Education: o
[2022-10-31] MEDS: SODIUM CHLORIDE 0.9% IV 1,000 ML 999 ML IV CONT (09:21)
[2022-10-31] MEDS: ONDANSETRON INJ 4 MG/2 ML VIAL IV PUSH (09:21)
[2022-10-31] MEDS: MORPHINE SULFATE (*CRX) 4 MG/ML INJ IV PUSH ×2 (09:22→13:08)
[2022-10-31] MEDS: PIPERACILLN/TAZ 3.375GM/NS50ML 3.375 GM/50 ML BAG IVPB ×2 (10:24→18:15)
[2022-10-31 10:31] LABS: Appearance Urine Clear (Clear); Bacteria Urine None Seen /hpf; Bilirubin Urine Negative (Negative); Color Urine Yellow (Yellow); Glucose Urine UA Negative (Negative); Ketones Urine Trace mg/dL (Negative); Leukocyte Esterase Ur Negative LEU/UL (Negative); Nitrate Urine Negative (Negative); Non Pathogenic Casts 0-2; Protein Urine Negative (Negative); Squamous Epithelial Cell Urine None seen /hpf (Few); WBC Urine 0-5 /hpf
[2022-10-31 10:40] LABS: Add Urine Microscopic? YES; Specific Grav Ur 1.072 (1.001-1.035)
--- NOTE | 2022-10-31 11:13 | PC.NURSE ---
report received from Jada BLACKWELL including history and physical and plan of care
[2022-10-31] MEDS: LACTATED RINGERS 1,000 ML 125 ML IV CONT ×2 (13:08→18:50)
--- NOTE | 2022-10-31 15:20 | PM.IMHP ---
H&P: HPI History of Present Illness Date/Time: 10/31/22 15:20 Chief Complaint: Left-sided abdominal pain Narrative: This is a 62-year-old man with a history of hyperlipidemia and obstructive sleep apnea, who presented to the emergency department today with complaints of left-sided abdominal pain. He has a history of diverticulitis with microperforation about 1 year ago that was treated conservatively with IV antibiotics and was hospitalized here at [facility] for 4 days. He did not follow up in the office and has not had a colonoscopy since that hospitalization. He denies having any issues since then. His last documented colonoscopy was in [address] Darling showing diverticulosis and internal hemorrhoids. He reports yesterday afternoon noticing a mild onset of left mid abdominal pain that felt similar to his previous episode of diverticulitis. His pain remained constant and he called his PCP today, who recommended he go to the ER for further evaluation. Labs showed a white blood cell count 22,400. He also had a total bilirubin of 2.5 with his other LFTs normal, and review of previous labs he had an elevated bilirubin of 1.9 about a year ago. In the ER, he has had mild tachycardia with a heart rate up to 112. He is afebrile and actually slightly hypertensive. No known history of essential hypertension. His blood pressure improved as his pain improved. He had a CT scan of the abdomen and pelvis that showed acute diverticulitis with microperforation, no abscess. Our service has been consulted by the ED physician. He is now seen in the ER. He denies fever, chills, nausea, vomiting, or any other complaints at this time. His bowels have been moving normally prior to his abdominal pain and his last bowel movement was yesterday morning. He is still having some left-sided abdominal pain, but this has improved significantly with IV morphine he received in the ER. Review of Systems Review of Systems: All systems reviewed & are unremarkable except as noted in HPI and below Constitutional: Constitutional: Reports no additional constitutional complaints, Denies chills, Denies fatigue, Denies fever(s) and Denies poor appetite Eyes: Eyes: Reports no additional eye complaints ENT: Reports system reviewed and no additional complaints, except as documented and Denies dizziness Cardiovascular: Cardiovascular: Reports no additional cardiovascular complaints, Denies chest pain and Denies leg edema Respiratory: Respiratory: Reports no additional respiratory complaints, Denies cough and Denies dyspnea Gastrointestinal: Gastrointestinal: Reports as per HPI, Reports no additional gastrointestinal complaints, Reports abdominal pain (left mid to left lower quadrant), Denies melena, Denies bloating, Denies hematochezia, Denies constipation, Denies diarrhea, Denies nausea and Denies vomiting Genitourinary: Genitourinary: Reports no additional male genitourinary complaints and Denies dysuria Musculoskeletal: Musculoskeletal: Reports no additional musculoskeletal complaints, Denies abnormal gait and Denies joint swelling Integumentary/Breasts: Skin/Breast: Reports system reviewed and no additional complaints, except as docu Neurologic: Reports system reviewed and no additional complaints, except as documented, Denies headache(s), Denies focal weakness, Denies numbness and Denies tingling PMFSH Past Medical History Medical History Achilles tendinitis of right lower extremity Benign positional paroxysmal vertigo involving lateral canal BRBPR (bright red blood per rectum) Diverticulitis Diverticulosis of intestine with bleeding Diverticulosis of intestine without bleeding Fall FHx: type 2 diabetes mellitus Hemangioma of other sites Hyperlipidemia Kidney stones Mouth sore Obstructive sleep apnea EMMY (obstructive sleep apnea) Prostate cancer screening Unilateral inguinal hernia without obstruction
--- NOTE | 2022-10-31 17:06 | PC.NURSE ---
attempted to call report at this time.
[2022-10-31] MEDS: MORPHINE SULFATE (*CRX) 2 MG/ML INJ IV PUSH ×2 (18:10→21:04)
--- NOTE | 2022-10-31 18:18 | PC.NURSE ---
This patient, Harrison Zarate, was admitted to 3 [facility] Surg Room 307-02. Patient/family oriented to hospital policies and general routines including ID bracelet, bed and alarms, visiting hours, pain management, procedures, bathroom and other care routines, personal items, smoking policy, room service/diet, and visiting hours. Information on how to activate the Rapid Response Team has been discussed. Patient/Family are encouraged to report perceived risks to care and to ask questions if they do not understand what they are told or what they should do.
[2022-11-01] MEDS: PIPERACILLN/TAZ 3.375GM/NS50ML 3.375 GM/50 ML BAG IVPB ×5 (00:37→23:41)
[2022-11-01] MEDS: MORPHINE SULFATE (*CRX) 2 MG/ML INJ IV PUSH ×4 (00:47→17:11)
[2022-11-01] MEDS: LACTATED RINGERS 1,000 ML 125 ML IV CONT ×3 (03:40→20:30)
[2022-11-01 06:00] VITALS: BP 142/68; PULSE 88; RESP 14; TEMP 36.5; O2SAT 99
[2022-11-01 07:22] LABS: Hematocrit 40.9 % (42.0-52.0); Hemoglobin 14.3 g/dL (14.0-18.0); Mean Corpuscular Hemoglobin 31.2 pg (26-34); Mean Corpuscular Volume 89.1 fl (80-100); Mean Platelet Volume 10.1 fl (7.4-10.4); Platelet Count Result 143 k/mm3 (150-375); Red Blood Count 4.59 M/mm3 (4.6-6.20); Red Cell Distribution Width 12.5 % (11.5-14.5); White Blood Count 11.9 K/mm3 (4.5-10.0)
[2022-11-01 07:36] LABS: Anion Gap 5 mmol/L (8-16); Blood Urea Nitrogen 9 mg/dL (9-20); Carbon Dioxide 25 mmol/L (22-30); Chloride 105 mmol/L (98-107); Estimated CRCL calculation 127 ml/min; Estimated Glomerular Filt Rate > 60; Glucose 108 mg/dL (65-110); Potassium 3.9 mmol/L (3.4-5.0); Sodium 135 mmol/L (137-145)
[2022-11-01] MEDS: MORPHINE SULFATE (*CRX) 4 MG/ML INJ IV PUSH ×2 (11:36→20:30)
--- NOTE | 2022-11-01 12:33 | PM.PNGS ---
Progress Note: A&P Assessment and Plan (1) Diverticulitis of intestine with perforation: Code(s): K57.80 - Diverticulitis of intestine, part unspecified, with perforation and abscess without bleeding Status: Acute Assessment and Plan: 2nd episode of diverticulitis. He had his 1st episode almost exactly a year ago. Patient had a negative colonoscopy about 1 year ago as well. This showed extensive diverticulosis but no evidence of a tumor. He is still pretty uncomfortable. Will continue bowel rest IV antibiotics and analgesics. I discussed with the patient and his the potential for requiring surgery acutely and the likelihood of that type of surgery involving and ostomy. Patient and his inquired about elective sigmoidectomy. I discussed this with the patient as being done laparoscopically once the acute infection has resolved. For now we will keep him NPO and continue his IV antibiotics. Continue to monitor with serial exam and lab work. Subjective Subjective Date/Time Seen: 11/01/22 12:33 Patient reports: still having pain, no flatus, no bowel movement and afebrile Review of Systems Review of Systems: All systems reviewed & are unremarkable except as noted in HPI and below (HPI and those items noted below) Constitutional: Constitutional: Denies chills and Denies fever(s) Cardiovascular: Cardiovascular: Denies chest pain, Denies diaphoresis, Denies dyspnea and Denies paroxysmal nocturnal dyspnea Respiratory: Respiratory: Denies chest congestion, Denies cough and Denies dyspnea Integumentary/Breasts: Skin/Breast: Denies lesions and Denies rash Exam Const: General: comfortable and no acute distress; No confusion Orientation/consciousness: patient oriented x3 and No confusion GI: Inspection: non-distended and not scaphoid GI Palp: Yes Soft to palpation, Yes Tenderness to palpation present (GI) (Especially suprapubic and left lower quadrant), Yes Guarding due to palpation present (GI) and No Rebound tenderness present Auscultation: Hypoactive bowel sounds present Neuro: General: patient oriented x3, no focal motor deficits and No confusion Extrem: General: no calf tenderness and no edema Psych: Affect: normal affect Insight: Good insight present (Psych) Judgement: Good judgement present (Psych) Objective Data Vital Signs Vital Signs: Vital Signs - 24 hr 10/31/22 15:08 10/31/22 15:15 10/31/22 15:30 Temperature Pulse Rate 69 Respiratory Rate 18 Blood Pressure 113/64 Pulse Oximetry 98 98 95 Oxygen Delivery 10/31/22 18:05 10/31/22 20:00 10/31/22 21:59 Temperature 36.9 C 36.3 C L Pulse Rate 82 87 Respiratory Rate 18 14 Blood Pressure 140/75 135/103 H Pulse Oximetry 96 98 Oxygen Delivery Room Air 11/01/22 06:00 11/01/22 09:55 Temperature 36.5 C Pulse Rate 88 Respiratory Rate 14 Blood Pressure 142/68 H Pulse Oximetry 99 Oxygen Delivery Room Air Intake/Output Intake/Output: Intake & Output 10/29/22 10/30/22 10/31/22 11/01/22 23:59 23:59 23:59 23:59 Intake Total 2200 2100 Output Total 1150 Balance 2200 950 Meds/Results Medications: Active Medications Generic Name Dose Route Start Last Admin Trade Name Freq PRN Reason Stop Dose Admin Piperacillin/Tazobactam/Dextrose 3.375 gm in 50 mls @ 100 mls/hr 10/31/22 18:00 11/01/22 11:32 Zosyn 3.375 Gm/Ns 50 Ml IVPB 100 mls/hr Q6HR SUSANA Administration Lactated Ringer's 1,000 mls @ 125 mls/hr 10/31/22 10:10 11/01/22 11:31 Lr - Lactated Ringers Iv IV CONT 125 mls/hr .Q8H SUSANA Administration Morphine Sulfate 4 mg 10/31/22 10:10 11/01/22 11:36 Morphine Sulfate (*Crx) 4 Mg/Ml Inj IV PUSH 4 mg Q2H PRN Administration Pain Rated 7-10 Morphine Sulfate 2 mg 10/31/22 15:22 11/01/22 09:52 Morphine Sulfate (*Crx) 2 Mg/Ml Inj IV PUSH 2 mg Q2H PRN Administration Pain Rated 4-6 Ondansetron HCl 4 mg 10/31/22 10:10 Ondansetron Inj 4 Mg/
[2022-11-01 14:00] VITALS: BP 163/82; PULSE 90; RESP 20; TEMP 36.8; O2SAT 98
[2022-11-01 20:47] VITALS: BP 150/80; PULSE 83; RESP 16; TEMP 36.4; O2SAT 97
[2022-11-02] MEDS: LACTATED RINGERS 1,000 ML 125 ML IV CONT ×2 (05:37→17:19)
[2022-11-02] MEDS: PIPERACILLN/TAZ 3.375GM/NS50ML 3.375 GM/50 ML BAG IVPB ×4 (05:37→23:39)
[2022-11-02 06:00] VITALS: BP 157/82; PULSE 77; RESP 18; TEMP 36.2; O2SAT 98
[2022-11-02 14:00] VITALS: BP 156/91; PULSE 86; RESP 20; TEMP 36.2; O2SAT 99
--- NOTE | 2022-11-02 14:17 | PM.PNGS ---
Progress Note: A&P Assessment and Plan (1) Diverticulitis of intestine with perforation: Code(s): K57.80 - Diverticulitis of intestine, part unspecified, with perforation and abscess without bleeding Status: Acute Assessment and Plan: Much improvement from yesterday. Will start full liquids. Continue IV Zosyn. Recheck labs and exam tomorrow. Possibly home tomorrow on a low-fiber diet. Subjective Subjective Date/Time Seen: 11/02/22 14:17 Patient reports: feels better, pain is less, no bowel movement and afebrile Review of Systems Review of Systems: All systems reviewed & are unremarkable except as noted in HPI and below (HPI) Exam Const: General: comfortable and no acute distress; No confusion Orientation/consciousness: patient oriented x3 and No confusion GI: Inspection: normal to inspection, non-distended and scaphoid GI Palp: Yes Soft to palpation, No Tenderness to palpation present (GI), No Guarding due to palpation present (GI), No Palpable mass present and No Rebound tenderness present Auscultation: normal bowel sounds Neuro: General: patient oriented x3, no focal motor deficits and No confusion Extrem: General: no calf tenderness and no edema Psych: Affect: normal affect Insight: Good insight present (Psych) Judgement: Good judgement present (Psych) Objective Data Vital Signs Vital Signs: Vital Signs - 24 hr 11/01/22 20:47 11/01/22 20:00 11/02/22 06:00 Temperature 36.4 C 36.2 C L Pulse Rate 83 77 Respiratory Rate 16 18 Blood Pressure 150/80 H 157/82 H Pulse Oximetry 97 98 Oxygen Delivery Room Air 11/02/22 08:00 11/02/22 14:00 Temperature 36.2 C L Pulse Rate 86 Respiratory Rate 20 Blood Pressure 156/91 H Pulse Oximetry 99 Oxygen Delivery Room Air Intake/Output Intake/Output: Intake & Output 10/30/22 10/31/22 11/01/22 11/02/22 23:59 23:59 23:59 23:59 Intake Total 2200 3200 1260 Output Total 1900 2600 Balance 2200 1300 -1340 Meds/Results Medications: Active Medications Generic Name Dose Route Start Last Admin Trade Name Freq PRN Reason Stop Dose Admin Piperacillin/Tazobactam/Dextrose 3.375 gm in 50 mls @ 100 mls/hr 10/31/22 18:00 11/02/22 12:10 Zosyn 3.375 Gm/Ns 50 Ml IVPB Infused Q6HR SUSANA Infusion Lactated Ringer's 1,000 mls @ 80 mls/hr 10/31/22 10:10 11/02/22 11:55 Lr - Lactated Ringers Iv IV CONT Not Given .[id number] SUSANA Morphine Sulfate 4 mg 10/31/22 10:10 11/01/22 20:30 Morphine Sulfate (*Crx) 4 Mg/Ml Inj IV PUSH 4 mg Q2H PRN Administration Pain Rated 7-10 Morphine Sulfate 2 mg 10/31/22 15:22 11/01/22 17:11 Morphine Sulfate (*Crx) 2 Mg/Ml Inj IV PUSH 2 mg Q2H PRN Administration Pain Rated 4-6 Ondansetron HCl 4 mg 10/31/22 10:10 Ondansetron Inj 4 Mg/2 Ml Vial IV PUSH Q4H PRN Nausea Radiology Results: ITS Impressions Abdomen/Pelvis CT 10/31/22 09:21 Impression: Acute diverticulitis at the splenic flexure the colon with several small bubbles of local free air, consistent with microperforation. No abscess.
[2022-11-02] MEDS: ENOXAPARIN 40 MG/0.4 ML SYRINGE SUB-Q (17:17)
[2022-11-02 22:00] VITALS: BP 157/86; PULSE 66; RESP 20; TEMP 36.1; O2SAT 98
[2022-11-03] MEDS: PIPERACILLN/TAZ 3.375GM/NS50ML 3.375 GM/50 ML BAG IVPB (05:33)
[2022-11-03] MEDS: LACTATED RINGERS 1,000 ML 80 ML IV CONT (05:33)
[2022-11-03 06:00] VITALS: BP 153/78; PULSE 74; RESP 20; TEMP 36.6; O2SAT 99
[2022-11-03 06:05] LABS: Hematocrit 43.1 % (42.0-52.0); Hemoglobin 15.2 g/dL (14.0-18.0); Mean Corpuscular HGB Conc 35.3 g/dl (32-36); Mean Corpuscular Hemoglobin 31.6 pg (26-34); Mean Corpuscular Volume 89.6 fl (80-100); Mean Platelet Volume 10.1 fl (7.4-10.4); Platelet Count Result 201 k/mm3 (150-375); Red Blood Count 4.81 M/mm3 (4.6-6.20); Red Cell Distribution Width 12.1 % (11.5-14.5); White Blood Count 7.8 K/mm3 (4.5-10.0)
[2022-11-03 06:19] LABS: Anion Gap 4 mmol/L (8-16); Blood Urea Nitrogen 8 mg/dL (9-20); Calcium 8.3 mg/dL (8.4-10.2); Carbon Dioxide 28 mmol/L (22-30); Chloride 106 mmol/L (98-107); Estimated CRCL calculation 146 ml/min; Estimated Glomerular Filt Rate > 60; Glucose 103 mg/dL (65-110); Sodium 138 mmol/L (137-145)
--- NOTE | 2022-11-03 10:23 | PM.DS ---
DS: Admitting Diagnosis Discharge Date 11/03/2022 Admitting Diagnosis Acute diverticulitis with micro perforation Obstructive sleep apnea Hyperlipidemia DS: Discharge Diagnosis Discharge Diagnosis (1) Diverticulitis of intestine with perforation: Code(s): K57.80 - Diverticulitis of intestine, part unspecified, with perforation and abscess without bleeding Status: Acute (2) EMMY (obstructive sleep apnea): Code(s): G47.33 - Obstructive sleep apnea (adult) (pediatric) Status: Acute (3) Dyslipidemia: Code(s): E78.5 - Hyperlipidemia, unspecified Status: Acute DS: Summary Hospital Course Hospital Course: Patient was admitted on 10/31/2022 with left lower quadrant abdominal pain. He had leukocytosis and tenderness. CT scan showed acute diverticulitis with micro perforation. This was nearly the exact same diagnosis that he presented with 1 year ago. That episode resolved with IV antibiotics and then oral antibiotics after discharge. He did not follow-up in the office as requested. He did proceed with colonoscopy and that was negative other than diverticulosis and some internal hemorrhoids. The patient was on this admission treated with IV Zosyn and responded well. On postop day 2. He was feeling much better. He tolerated liquids well. He had some mild soreness today but his exam looked good with tenderness only to deep palpation in the left lower quadrant. His white blood cell count is normal. He is discharged now on a low-fiber diet and will follow up with me in 2 weeks. We discussed and he is interested in sigmoidectomy electively. This will be discussed further at his follow-up office visit. Status at Discharge Functional status at discharge: independent ambulation Overall status at discharge: patient is progressing back to baseline Time Spent with Patient Time attestation: Total time spent providing and/or coordinating discharge services: Time spent: Less than 30 minutes DS: Data Data Completed and Pending Labs on day of discharge: Labs from last 24 hours 11/03/22 11/03/22 05:41 05:41 WBC 7.8 RBC 4.81 Hgb 15.2 Hct 43.1 MCV 89.6 MCH 31.6 MCHC 35.3 RDW 12.1 Plt Count 201 MPV 10.1 Sodium 138 Potassium 4.0 Chloride 106 Carbon Dioxide 28 Anion Gap 4 L BUN 8 L Creatinine 0.60 L Estim Creat Clear Calc 146 Estimated GFR > 60 Glucose 103 Calcium 8.3 L Discharge Plan Discharge Attending physician on discharge: Elias Jackson Discharging Clinician: Elias Jackson Anticipated Discharge Date/Time: 11/03/22 10:29 Patient Disposition: Home, Self-Care Activity: may shower and as tolerated Diet: low fiber Discharge Instructions: Activity as tolerated. Follow-up with Dr. Jackson in 2 weeks. Stay on a low-fiber diet. Take oral antibiotics until they are gone. Patient Instructions: Antibiotic Form Stand Alone Forms: General Discharge Information Follow-up/Referrals: Elias Jackson MD [Physician] - 2 Weeks (Call Dr. Jacobs office for appointment) Discharge Medications: New amoxicillin-pot clavulanate 875-125 mg tablet 1 tablet PO Q12H Qty: 10 0RF Continued omega-3 fatty acids [Fish Oil Concentrate] 1,000 mg capsule 1,000 mg PO DAILY rosuvastatin 5 mg tablet See Rx Instructions .ROUTE .COMPLEX Qty: 90 1RF Dose Instruction: TAKE 1 TABLET BY MOUTH EVERY DAY Rx Instructions: TAKE 1 TABLET BY MOUTH EVERY DAY (DME) CPap machine and supplies See Rx Instructions .Route .MEDSUPPLY Qty: 1 0RF Rx Instructions: Pt needs Auto CPap machine and all supplies. Sleep study recommended pressure between 4-20. Use as directed Date of admission: 10/31/22 10:10 Primary Care Provider: Jamey Cerna Admitting Provider: Elias Jackson Attending physician on admission: Elias Jackson Condition: Improved
== END 2022-11-03 13:30 | disposition home or self-care (01) | DRG 392 ==
LOC: ANHED 10:49 → ANH2MED 12:09 → ANH3MEDSUR 16:49
PROVIDERS: Nurse Practitioner Family; Admitting Provider Surgery; Emergency Provider Emergency Medicine; PCP Internal Medicine; Visit Provider Surgery
DX: K57.20 Diverticulitis of large intestine with perforation and abscess without bleeding (principal); E11.9 Type 2 diabetes mellitus without complications; E78.5 Hyperlipidemia, unspecified; G47.33 Obstructive sleep apnea (adult) (pediatric); Z87.442 Personal history of urinary calculi
CPT/HCPCS: 36415; 74177; 80048; 80053; 81001; 83605; 83690; 85025; 85027; 96361; 96375; 99285; J0131; J1650; J2270; J2405; J2543; J7030; J7120; Q9967

== ENCOUNTER 2022-12-30 01:47 | Day surgery (SDC) | payer BC, SELFPAY ==
[2022-12-17 13:23] VITALS: BMI 32.1
--- NOTE | 2022-12-28 10:47 | PM.HPGS ---
History of Present Illness History of Present Illness Consent: Risks, benefits, and alternatives have been discussed and questions answered. Patient agrees to proceed with procedure. Chief complaint: diverticulitis with perforation and abscess Narrative: Harrison Zarate is a 62 year old male Who was hospitalized in October with acute diverticulitis. he has had several episodes of diverticulitis apparently in different areas of the colon. He has recovered from that now. He did have a colonoscopy about 5 years ago. Review of Systems Review of Systems: All systems reviewed & are unremarkable except as noted in HPI and below PMFSH Past Medical History Medical History Achilles tendinitis of right lower extremity Benign positional paroxysmal vertigo involving lateral canal BRBPR (bright red blood per rectum) Diverticulitis Diverticulosis of intestine with bleeding Diverticulosis of intestine without bleeding Fall FHx: type 2 diabetes mellitus Hemangioma of other sites Hyperlipidemia Kidney stones Mouth sore Obstructive sleep apnea EMMY (obstructive sleep apnea) Prostate cancer screening Unilateral inguinal hernia without obstruction or gangrene Surgical History Surgical History History of cystoscopy (2011) With right ureteroscopy and stone extraction. History of inguinal hernia repair Open left inguinal hernia repair with mesh in August 2016. Family History Family History Father Diabetes mellitus Hypertension Family history of malignant neoplasm Sibling Diabetes mellitus Mother Family history of lung cancer Social History Social History Social History: Surrogate decision maker: Barbara Zarate, spouse. Code status: Full code. Smoking status: Never smoker Second hand tobacco smoke exposure: No Alcohol intake: never Substance use: never Substance use type: does not use Lack of Transportation: No Lack of Food: Never True Current Housing: I Have Housing Concerned About Future Housing: No Difficulty Paying Gas/Electric Bills: No Difficulty Paying for Meds: No Currently Unemployed: No Education: Trade/Vocational Certificate Difficulty w/ Childcare or Family Care: No Living arrangements: with family Additional living arrangements comments: The patient lives with his in [place]. Occupation/Education: occupation Additional occupation/education comments: Works for [employer]. Gender identity (if verbalized by the patient): Male Spiritual care concerns: No Meds Home Medications and Allergies Home Medications Medication Instructions Recorded Confirmed Type omega-3 fatty acids 1,000 mg 1,000 mg PO DAILY 02/17/20 12/17/22 History capsule (Fish Oil Concentrate) CPap machine and supplies #1 ea 09/24/22 11/25/22 Rx rosuvastatin 5 mg tablet 5 mg PO DAILY 12/17/22 12/17/22 History Allergies Allergy/AdvReac Type Severity Reaction Status Date / Time meperidine AdvReac Unknown Vomiting Verified 12/30/22 07:18 Exam Const: General: alert Orientation/consciousness: patient oriented x3 Resp: Auscultation: clear to auscultation bilaterally Cardio: Rhythm: regular rhythm GI: GI Palp: Yes Soft to palpation and No Tenderness to palpation present (GI) Neuro: General: patient oriented x3 Assessment and Plan Assessment and plan (1) Diverticulitis of intestine with perforation: Code(s): K57.80 - Diverticulitis of intestine, part unspecified, with perforation and abscess without bleeding Status: Acute Assessment and Plan: Colonoscopy with possible biopsy or polypectomy or cautery or injection of substances.
[2022-12-30 07:19] VITALS: BP 140/79; PULSE 82; RESP 18; TEMP 36.1; O2SAT 100
[2022-12-30] MEDS: LACTATED RINGERS 1,000 ML 150 ML IV CONT (07:32)
--- NOTE | 2022-12-30 07:46 | WPDANESEPPF ---
Anes - Initial Pre Proc Eval Procedure: Operation Date: 12/30/22 08:30 Proposed Procedures p Colonoscopy - Chaparro Dockery MD Date/Time: 12/30/22 07:46 Surgeon: Chaparro Dockery MD Pre Op Diagnosis: diverticulitis with perforation and abscess Patient Data Age: 62 Gender: M Height: 1.88 m Weight: 105.6 kg Last Vital Signs Temp 97 F L 12/30/22 07:19 Pulse 82 12/30/22 07:19 Resp 18 12/30/22 07:19 BP 140/79 12/30/22 07:19 Pulse Ox 100 12/30/22 07:19 O2 Del Method Room Air 12/30/22 07:19 Allergies Allergy/AdvReac Type Severity Reaction Status Date / Time meperidine AdvReac Unknown Vomiting Verified 12/30/22 07:18 Home Medications Medication Instructions Recorded Confirmed Type omega-3 fatty acids 1,000 mg 1,000 mg PO DAILY 02/17/20 12/17/22 History capsule (Fish Oil Concentrate) CPap machine and supplies #1 ea 09/24/22 11/25/22 Rx rosuvastatin 5 mg tablet 5 mg PO DAILY 12/17/22 12/17/22 History Patient hx anesthesia problems: none Family hx anesthesia problems: none Results Review: All pre-operative results and documents have been reviewed as part of the pre-operative evaluation. [facility] Past Medical History Medical History Achilles tendinitis of right lower extremity Benign positional paroxysmal vertigo involving lateral canal BRBPR (bright red blood per rectum) Diverticulitis Diverticulosis of intestine with bleeding Diverticulosis of intestine without bleeding Fall FHx: type 2 diabetes mellitus Hemangioma of other sites Hyperlipidemia Kidney stones Mouth sore Obstructive sleep apnea EMMY (obstructive sleep apnea) Prostate cancer screening Unilateral inguinal hernia without obstruction or gangrene Surgical History Surgical History History of cystoscopy (2011) With right ureteroscopy and stone extraction. History of inguinal hernia repair Open left inguinal hernia repair with mesh in August 2016. Family History Family History Father Diabetes mellitus Hypertension Family history of malignant neoplasm Sibling Diabetes mellitus Mother Family history of lung cancer Social History Social History Social History: Surrogate decision maker: Barbara Zarate, spouse. Code status: Full code. Smoking status: Never smoker Second hand tobacco smoke exposure: No Alcohol intake: never Substance use: never Substance use type: does not use Lack of Transportation: No Lack of Food: Never True Current Housing: I Have Housing Concerned About Future Housing: No Difficulty Paying Gas/Electric Bills: No Difficulty Paying for Meds: No Currently Unemployed: No Education: Trade/Vocational Certificate Difficulty w/ Childcare or Family Care: No Living arrangements: with family Additional living arrangements comments: The patient lives with his in [place]. Occupation/Education: occupation Additional occupation/education comments: Works for [employer]. Gender identity (if verbalized by the patient): Male Spiritual care concerns: No Anes - Eval Final PreProcedure Day of Procedure 12/30/22 07:46 Patient weight: obese Heart: regular rate and rhythm Lungs: clear to auscultation Airway: Mallampati scale class II Neurological: alert and oriented Last oral intake: >/= 8 hours ASA classification: II Emergent: no Anesthetic plan: proceed Anesthesia type and monitoring: general GIVS and standard monitoring Results Review: All pre-operative results and documents have been reviewed as part of the pre-operative evaluation. Informed Consent: The patient's anesthetic plan and its attendant risks and benefits were discussed with the patient/family/POA. Questions were solicited and answers provide
[2022-12-30 09:18] VITALS: BP 108/59; PULSE 73; RESP 14; O2SAT 100
[2022-12-30 09:28] VITALS: BP 116/65; PULSE 70; RESP 18; O2SAT 99
[2022-12-30 09:38] VITALS: BP 121/69; PULSE 72; RESP 22; O2SAT 100
== END 2022-12-30 09:54 | disposition home or self-care (01) ==
PROVIDERS: PCP Internal Medicine; Visit Provider Internal Medicine Gastroenterology
PROC: 0DJD8ZZ Inspection of Lower Intestinal Tract, Via Natural or Artificial Opening Endoscopic (ICD-10-PCS; CPT 45378; principal; 2022-12-30 08:30)
DX: K57.30 Diverticulosis of large intestine without perforation or abscess without bleeding (principal); K64.8 Other hemorrhoids; K62.1 Rectal polyp; Z87.19 Personal history of other diseases of the digestive system; E78.5 Hyperlipidemia, unspecified; G47.33 Obstructive sleep apnea (adult) (pediatric); E66.9 Obesity, unspecified; Z68.29 Body mass index [BMI] 29.0-29.9, adult
CPT/HCPCS: 45380; 88305; J2704; J7120

== ENCOUNTER 2024-11-17 09:19 | Outpatient (CLI) | payer BC, SELFPAY ==
--- OUTSIDE RECORDS SUMMARY | 2024-11-17 10:04 | XMS_ITS | Clinical Summary ---
Author Organization [facility] Address [address], [address] [address] Phone Care Team Providers Care Business Services Intern Name Role Phone Jamey Cerna MD Primary Care Provider [phone] Medications polyethylene glycol (MIRALAX) Powder Use entire bottle of 255 grams of miralax for Colon prep as directed by office. 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 Gender Identity Not on file Sexual Orientation Not on file Plan of Treatment Health Maintenance Due Date Last Done Comments Hepatitis C Virus (HCV) Screening 1960 TdaP Immunization 1960 Cologuard 2011 Immunochemical Fecal Occult Blood 2011 Pneumococcal Immunization (5 0+ years) (1 of 1 - PCV) 2011 Zoster Immunization (1 of 2) 2011 PSA Discussion 2016 Influenza Immunization (#1) 2024 SARS-COV-2 Immunization ( - season) 2024 Colonoscopy 09/25/2027 09/25/2017 Colorectal Cancer Screening 09/25/2027 Respiratory Syncytial Virus (RSV) Immunization (Adult) (1 - 1-dose 75+ series) 2036 09/25/2017 Hepatitis B Immunization Aged Out No longer eligible based on patient's age to complete this topic Meningococcal Immunization (ACWY) Aged Out No longer eligible based on patient's age to complete this topic Pneumococcal Immunization Combined Aged Out No longer eligible based on patient's age to complete this topic Rotavirus Immunization Aged Out No lo nger eligible based on patient's age to complete this topic Procedures Procedure Name Priority Date/Time Associated Diagnosis Comments COLONOSCOPY Routine 09/25/2017 from Last 3 Months or Most Recently Relevant to Health Maintenance Results * COLONOSCOPY (09/25/2017) Jonathan Darling DO PROCEDURE/MINOR SURGICAL ORDERA BLES Final Result from Last 3 Months or Most Recently Relevant to Health Maintenance [place] [address] [address] [address] Care Teams Business Services Intern Relationship Specialty Start Date End Date Jamey Cerna MD [address] [place] [address] PCP - General Internal Medicine 09/29/17
--- NOTE | 2024-11-29 10:39 | WPDHOLTEREM ---
Holter/Event Monitor Holter/Event Monitor Date of procedure: 11/17/24 Holter/Event Procedure: 3-7 Day Holter Monitor Indications: Palpitations Conclusion: 1. 4 days holter monitor on 11/17/24. 2. Predominant rhythm is sinus rhythm. HR range 49-148 bpm; average HR 81 bpm. HR at 49 bpm was on 11/19/24 at 2:33 am. 3. There are rare premature supraventricular complexes, rare supraventricular couplets, and rare supraventricular triplets. There are 3 episodes of supraventricular tachycardia, fastest at 148 bpm and longest lasting 4 beats. 4. There are rare premature ventricular complexes. No ventricular tachycardia. 5. No significant pauses greater than 3 seconds. 6. No symptoms available for correlation.
== END 2024-11-17 09:20 | disposition home or self-care (01) ==
PROVIDERS: PCP Internal Medicine; Visit Provider Internal Medicine
DX: R00.2 Palpitations (principal)
CPT/HCPCS: 93242

== ENCOUNTER 2024-12-07 08:51 | Outpatient (CLI) | payer BC, SELFPAY ==
--- OUTSIDE RECORDS SUMMARY | 2024-12-07 09:26 | XMS_ITS | Clinical Summary ---
Author Organization [facility] Address [address], [address] [address] Phone Care Team Providers Care Thermite Bomb Loader Name Role Phone Jamey Cerna MD Primary Care Provider [phone] Medications polyethylene glycol (MIRALAX) Powder Use entire bottle of 255 grams of miralax for Colon prep as directed by office. 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
[2025-01-03 16:22] VITALS: BMI 32.1
--- NOTE | 2025-01-03 16:22 | WPDSLEEPSTUD ---
Sleep Study Date of Study: 12/07/24 Ordering Provider: Jamey Cerna MD Interpreting Physician: Judith Mcneal DO Sleep Study Type: Polysomnogram Height: 1.88 m Weight: 113.398 kg Body Mass Index: 32.1 Neck Circumference (inches): 17 Mckenna: 7 Reason for Sleep Study Previously diagnosed with moderate EMMY on home sleep test on 09/04/2022. The patient was never started on treatment. Sleep History The patient is a 64-year-old male who had a sleep study ordered by his primary care physician for evaluation of sleep apnea. The patient frequently awakens from sleep short of breath. He constantly snores loudly enough that others complain. He rarely has trouble sleeping when he has a cold. He frequently wakes up gasping for air throughout the night. He frequently has breathing problems at night observed by himself or others. He denies sweating excessively at night. He rarely has heart palpitations or irregular heartbeats during the night. He denies falling asleep during the day and while driving. He denies sleep paralysis, cataplexy, and hypnagogic or hypnopompic hallucinations. He denies having trouble at school or work due to sleepiness. He denies feeling afraid of going to sleep. He rarely has nightmares. He occasionally remembers his dreams. He denies having thoughts racing through his mind. He denies feeling sad, depressed, or anxious. He denies having muscular tension. He denies noticing parts of his body jerk. He rarely kicks during the night. He denies having leg pain during the night. He rarely grinds his teeth during sleep, but never awakens with morning jaw pain. He denies being bothered by pain during the day and denies being awakened by pain during the night. He rarely wakes up feeling stiff in the morning. He rarely wakes up with sore or achy muscles. He denies waking up with pain in the neck, spine, or other joints. He goes to bed at 8 p.m. on weekdays and at 9 p.m. on the weekends. He is able to fall asleep immediately. He does not typically wake up throughout the night. He wakes up at 4 a.m. on weekdays and at 6 a.m. on the weekends. He typically gets 7 to 8 hours of sleep per night. He will stay in bed for 20 to 30 minutes after waking up in the morning. He currently lives with his . He denies consuming any caffeinated beverages within 2 hours of bedtime. He denies engaging in physical exercise before bedtime. He will not read or watch television before falling asleep. He denies taking naps in the afternoon or the evening. He denies consuming caffeinated beverages throughout the day. He denies tobacco, alcohol, and recreational drug use. [facility] Past Medical History Medical History Diarrhea Vitamin D deficiency BMI 31.0-31.9,adult Diverticulosis Internal hemorrhoid Rectal polyp Sepsis EMMY (obstructive sleep apnea) Unilateral inguinal hernia without obstruction or gangrene Diverticulosis of intestine without bleeding Diverticulosis of intestine with bleeding Mouth sore Hemangioma of other sites BRBPR (bright red blood per rectum) Achilles tendinitis of right lower extremity Fall Prostate cancer screening FHx: type 2 diabetes mellitus Obstructive sleep apnea Diverticulitis Kidney stones Benign positional paroxysmal vertigo involving lateral canal Sepsis BPPV (benign paroxysmal positional vertigo) Vertigo BMI 29.0-29.9,adult Hyperlipidemia Surgical History Surgical History History of cystoscopy (2011) With right ureteroscopy and stone extraction. History of inguinal hernia repair Open left inguinal hernia repair with mesh in August 2016. Family History Family History Father Diabetes mellitus Hypertension Family history of malignant neoplasm Sibling Diabetes mellitus Mother Family history of lung cancer Social History Social History Social History: Surrogate decision maker: Barbara Caceresner, spouse. Code status: Full code. Smoking status: Never smoker Second hand tobacco smoke exposure: No Alcohol intake: never Substance use: never Substance use type: does not use Lack of Transportation: No Lack of Food: Never True Current Housing: I Have Housing Concerned About Future Housing: No Difficulty Paying Gas/Electric Bills: No Difficulty Paying for Meds: No Currently Unemployed: No Education: Trade/Vocational Certificate Difficulty w/ Childcare or Family Care: No Living arrangements: with family Additional living arrangements comments: The patient lives with his in [place]. Occupation/Education: occupation Additional occupation/education comments: Works for [employer]. Gender identity (if verbalized by the patient): Male Spiritual care concerns: No Medications Home Medications Medication Instructions Recorded Confirmed Type omega-3 fatty acids 1,000 mg 1,000 mg PO DAILY 02/17/20 11/01/24 History capsule (Fish Oil Concentrate) rosuvastatin 5 mg tablet See Rx Instructions .Route 08/20/24 11/01/24 Rx .COMPLEX #90 tabs Sleep Procedure A full night polysomnogram using the [employer] multi-channel system recorded the standard physiologic parameters including EEG, EOG, submentalis EMG, anterior tibialis EMG, EKG, body position, nasal and oral airflow using nasal pressure sensor and thermistor. Respiratory parameters of chest and abdominal movements were recorded with Respiratory Inductance Plethysmography belts. Oxygen saturation was recorded by pulse oximetry. Video monitoring was also performed. Sleep stages, periodic limb movements, and EEG arousals were scored in 30 second epochs according to the criteria of the AASM Scoring Manual. The Apnea-Hypopnea Index was calculated using [facility] guidelines for definition of hypopnea with 4% O2 desaturations while scoring respiratory events. Sleep Architecture The total recording time was 480.0 minutes. The total sleep time was 368.5 minutes. Sleep latency was 20.4 minutes. REM latency was 225.5 minutes. Sleep efficiency was 76.8%. The patient had 41 awakenings for an awakening index of 6.7. Wake after sleep onset time was 91.0 minutes. The patient spent 42.0 minutes, 11.4% of total sleep time in Stage N1. The patient spent 246.0 minutes, 66.8% in Stage N2. The patient spent 31.0 minutes, 8.4% in Stage N3. The patient spent 49.5 minutes, 13.4% in Stage REM sleep. Respiratory Analysis The patient had 48 hypopneas for an overall Apnea Hypopnea Index of 7.8. The REM Apnea Hypopnea Index was 12.1. The NREM Apnea Hypopnea Index was 8.5. The patient had a Central Apnea Hypopnea Index of 0. There was no evidence of Antony-Hollins Respirations. Arousals There were 155 total arousals for an arousal index of 25.2. There were 120 spontaneous arousals for an index of 19.5. There were 9 arousals due to respiratory events for an index of 1.5. There were 18 arousals due to periodic limb movements for an index of 2.9. There were 9 arousals due to isolated limb movements for an index of 1.5. Periodic Limb Movements The patient had 23 isolated limb movements with an index of 3.7. The patient had 125 periodic limb movements with an index of 20.4, which is elevated (normal < 15). Patient had a total of 148 limb movements with a total limb movement index of 24.1. Oximetry Data The patient had an average oxygen saturation of 94.3% in sleep with a minimum oxygen saturation of 88.0% and a maximum oxygen saturation of 98.0%. The patient had 49 oxygen desaturations that were 4% or greater resulting in an Oxygen Desaturation Index of 8.0. The patient spent 0.3 minutes, 0.1% of total sleep time with an oxygen saturation below 88%. Snoring Profile Moderate to loud snoring was present throughout the study. Cardiac Profile The EKG showed normal sinus rhythm. No arrhythmias or premature beats were seen. The patient had an average pulse rate of 68.1 bpm with a minimum pulse of rate of 54.0 bpm and a maximum pulse rate of 102.0 bpm. EEG Profile No signs of seizure activity seen. Assessment and Plan Assessment and Plan (1) EMMY (obstructive sleep apnea): Code(s): G47.33 - Obstructive sleep apnea (adult) (pediatric) Status: Acute Assessment and Plan: The patient had an overall AHI of 7.8 with desaturation down to 88%. This is consistent with mild sleep apnea. Due to the patient's heart palpitations, he qualifies for treatment. I recommend that the patient be prescribed AutoPAP 5-15 cm H2O, CPAP mask/filters/tubing and heated humidity. A mandibular advancement device is also an acceptable treatment option. This should be used with all episodes of sleep. Compliance should be reviewed within 31-90 days of starting therapy for usage greater than 4 hours per night greater than 70% of the nights. The patient should be asked about symptoms such as excessive daytime sleepiness, quality of sleep, decreased nocturia, increased mental functioning such as memory, mood, and concentration. Data The data obtained during this sleep study is adequate for interpretation. Certification This sleep study has been reviewed by a board certified sleep medicine physician.
== END 2024-12-08 05:45 | disposition home or self-care (01) ==
LOC: ANHCSM 08:52
PROVIDERS: PCP Internal Medicine; Visit Provider Internal Medicine
DX: G47.33 Obstructive sleep apnea (adult) (pediatric) (principal)
CPT/HCPCS: 95810